=== PATIENT | female | born 1945 | race Caucasian/White ===

== ENCOUNTER 2017-08-31 13:09 | Inpatient (IN) ==
--- NOTE | 2017-08-31 15:59 | Pulmonology History & Physical ---
<JannedelmiraNuha pepper M - Last Filed: 08/31/17 16:17> Date of Encounter: 08/31/17 History of Present Illness HPI: Ms. Mckeon is a 71 year old female Medications and Allergies Albuterol Sulfate [Ventolin Hfa] 18 gm IH Q4HR PRN 11/05/16 [History] Citalopram Hydrobromide [Citalopram HBr] 40 mg PO DAILY 11/05/16 [History] Clopidogrel [Plavix] 75 mg PO DAILY 11/05/16 [History] Fluticasone/Salmeterol [Advair 250-50 Diskus] 1 each IH BID 11/05/16 [History] Insulin Glargine,Hum.rec.anlog [Lantus Solostar] 10 unit SQ DAILY 11/05/16 [ History] Omeprazole 20 mg PO DAILY 11/05/16 [History] Oxybutynin Chloride [Ditropan Xl] 15 mg PO DAILY 11/05/16 [History] Atorvastatin [Lipitor] 20 mg PO HS 08/31/17 [History] Ketotifen Fumarate [Zaditor] 1 - 2 drop OP DAILY 08/31/17 [History] Montelukast Sodium [Singulair] 10 mg PO DAILY 08/31/17 [History] 3 Allergy/AdvReac Type Severity Reaction Status Date / Time Penicillins Allergy Anaphylaxis Verified 08/31/17 17:12 All Systems: The remainder of the systems were reviewed and are negative Physical Examination Vital Signs: Vital Signs, Last 4 Hours Pulse Pulse Ox 08/31/17 15:55 80 08/31/17 15:36 99 - Attending Attestation I examined this patient and my medical decision-making was reviewed with the Resident Physician. I agree with the documented findings, disposition and treatment plan as described except to the extent set forth below. Patient seen and examined. Labs, radiology, chart personally reviewed. 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 Is not clear the patient has gastrointestinal bleed, however she is at risk and to continue monitoring. Patient needs to be on PPI and even octreotide. When stable enough will need to check CT abdomen pelvis since patient has history of falls history and a history from family and evaluate for retroperitoneal bleed. Heme: DVT prophylaxis per routine. Patient with severe anemia and I suspect this is from acute blood loss and patient has thrombocytopenia and she is on Plavix listed on her medication. Needs to transfuse blood and platelets. Check coagulopathy. She might need even hematology consultation for further workup. Peripheral smear be important to check. Mechanical DVT prophylaxis ID: Empiric antibiotics Renal; urine out put and renal funtion reviewed. May need nephrology evaluation Endorcine: blood glucose is monitored Lines: all lines checked and no evidence of infections Skin: skin care to prevent pressure ulcers per nursing routine care Discussed with family at the bedside. I spent 35 min of Critical Care time with this patient. It involved decision making of high complexity to assess, manipulate, and support vital organ system failure and/or to prevent further life threatening deterioration of the patient' s condition. The time involved in the performance of separately reportable procedures was not counted toward critical care time. <Omar Briceno - Last Filed: 08/31/17 17:55> Date of Encounter: 08/31/17 Time of Encounter: 15:59 Assessment and Plan (1) Pancytopenia Current visit: Yes Status: Acute Patient has had increased falls recently. On exam patient was completely alert and oriented. She did have generalized weakness. This again is probably all due to her pancytopenia this could be chronic. Or this could be an underlying upper GI bleed. Patient has had melanic stools and she is constipated where she has bowel movements every 4 days. Patient is also on Plavix but no other anticoagulation. She is on Plavix due to previous CVAs. There was bruising on exam but no current bleeding. Patient had a hemoglobin of 5.6 as well as platelets of 14 We will give 2 units of packed red blood cells upon arrival as well as 1 unit of platelets. Every 6 hour H&H's to continue to monitor. Consider adding more blood or platelets based on what hemoglobin comes back. (2) Hyponatremia Current visit: Yes Status: Acute Patient was hyponatremic of 118 but she was hyperglycemic at 500 when you do the sodium correction it is 125. This most likely is just due to dehydration and poor diabetes control. We will give patient 500 mL bolus of normal saline and also give her 75 mL per hour normal saline maintenance fluids. We will continue to monitor with daily CMP is (3) GI bleed Current visit: Yes Status: Acute Patient has had melenic stools and she also has been constipated. Her pancytopenia could also be due to her upper GI bleed that she is having. We will stabilize patient with blood and platelets and will consult GI for possible upper endoscopy. We will start Protonix and octreotide getting boluses and then following up with a drip. Qualifiers: GI bleed type/associated pathology: unspecified gastrointestinal hemorrhage type Qualified Code(s): K92.2 - Gastrointestinal hemorrhage, unspecified (4) Hyperglycemia Current visit: No Status: Acute (5) Type 2 diabetes mellitus Current visit: Yes Status: Acute Patient does have history diabetes she takes Lantus daily for many years. Patient for the last 2 weeks said that she does not like poking herself so she was not taking it. Patient is also no watching her diet. She did have elevated glucose of over 500. The did give 10 units of insulin at the outside facility before transferring. We will start low-dose insulin protocol and continue to monitor. We will give 500 IV bolus and also maintenance fluids at 75 per hour which should help with patient's hyperglycemia. 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 She does have good pedal pulses bilaterally she is neurovascularly intact in both legs and she does have movement at the hip. There is no tenderness when doing pelvic compression. We will get left hip x-ray and give Tylenol for pain control. (7) DVT prophylaxis Current visit: Yes Status: Acute Will hold anticoagulation for suspected GI bleed History of Present Illness Chief complaint: Weakness HPI: Ms. Mckeon is a 71 year old female with history of COPD smokes 2 packs per day presented to the emergency department in [place] for generalized weakness and frequent falls. Family states that over the past couple weeks they have found her she has felt 2-3 times a day found on the ground. States since then she has still been acting normal not complaining of any headaches or any generalized numbness or tingling or weakness on one side. They said that now she is so weak that she is unable to stand. Daughter said they found her on the floor and they helped her off up off and she is unable Vishnu or legs were giving out when she tried to walk. Patient 4 days ago did live by herself and her recently moved in with sister who has been taking care of them. Every time that they find that she falls it is when the daughter is outside of the house. Theybeen having trouble caring for both the patient as well as the who also has dementia. Theyshe has been drinking a lot less water than normal as well as eating less food. Patient does have very poor bowel habits as she says she has a bowel movement every 4 days Ciszek can be black but there is no gross blood in the toilet or when she wipes. So this is going on for partially one year she has not had a doctor's appointment for this. Patient does have history of bladder incontinence that usually occurs once an evening for last couple years. Patient states he only medical problem she has is a heart problem but she is unsure what type of heart problems she has never had an echocardiogram or had stents placed her in a heart attack or open heart surgery. She does not take any high blood pressure medications. Patient does have history of CVAs where she has had no left-sided weakness she does take Plavix for this. No other anticoagulation taken. Patient is diabetic she is only prescribed Lantus was says she has not taken it for last 2-3 weeks as she does not like to give it to herself. Past Med Surg Social Fam HX - Past Medical History Medical history: asthma, COPD, CVA, diabetes, hyperlipidemia Psychiatric history: no psych history - Past Surgical History Surgical History: thyroidectomy - Social History Smoking Status: Current every day smoker Smokeless Tobacco Status: No Alcohol use: none Drug use: none All Systems: The remainder of the systems were reviewed and are negative - Constitutional Constitutional: fatigue, no anorexia, no chills, no daytime sleepiness, no excessive sweating, no fever(s) - EENT Eyes: no loss of vision Ears: no decreased hearing Nose, mouth and throat: no dizziness, no dry mouth, no headache(s), no neck pain , no sinus pain, no sore throat - Cardiovascular Cardiovascular: no chest pain, no chest pain at rest, no chest pain with activity, no dyspnea, no edema, no irregular heart rhythm, no leg edema, no lightheadedness, no palpitations, no pedal edema - Respiratory Respiratory: no cough, no dyspnea, no hemoptysis, no wheezing, no stridor, no pain on inspirtation, no chest congestion, no pain with cough - Gastrointestinal Gastrointestinal: melena, no abdominal pain, no diarrhea, no nausea, no vomiting - Musculoskeletal Musculoskeletal: weakness, no joint pain, no arthralgias, no back pain, no muscle weakness, no numbness, no radiating pain into limb, no stiffness, no tingling - Integumentary Integumentary: no erythema, no rash, no jaundice - Neurological Neurological: no abnormal gait, no abnormal hearing, no confusion, no dizziness , no headache(s), no loss of vision, no numbness, no radicular pain, no syncope , no weakness - Psychiatric Psychiatric: no anxiety - Endocrine Endocrine: no cold intolerance, no deeping of the voice - Hematologic/Lymphatic Hematologic/Lymphatic: easy bruising, no lymphadenopathy - Allergic/Immunologic Allergic/Immunologic: no tongue swelling, no throat swelling, no seasonal rhinorrhea, no uticaria, no wheezing, no lip swelling Physical Examination Vital Signs: Vital Signs, Last 4 Hours Pulse Ox 08/31/17 15:36 99 General appearance: no acute distress, alert Eyes: nonicteric ENT: oropharynx moist Neck: supple Effort: normal Inspection: normal Auscultation: bilateral: clear Cardiovascular: regular rate and rhythm Gastrointestinal: normoactive bowel sounds, soft, non-tender, non-distended Integumentary: normal Extremities: no cyanosis, no edema, no clubbing Musculoskeletal: no deformities, ROM normal normal mental status, non-focal exam, pupils equal and round, motor strength normal and symmetric Results - Diagnostic Findings Chest x-ray: image reviewed
[2017-08-31] MEDS ORDERED: Acetaminophen 325 MG TABLET PO PRN (16:10)
[2017-08-31] MEDS ORDERED: Naloxone 0.4 MG/ML INJ IVP PRN (16:10)
[2017-08-31] MEDS ORDERED: 0.9 % Sodium Chloride 1,000 ML IVC SCH (16:15)
[2017-08-31] MEDS ORDERED: 0.9 % Sodium Chloride 500 ML IVC ONE (16:22)
[2017-08-31] MEDS ORDERED: Pantoprazole 40 MG VIAL IVP ONE (16:36)
[2017-08-31] MEDS ORDERED: Octreotide 50 MCG/ML SYRINGE IVP ONE (16:36)
[2017-08-31] MEDS ORDERED: D5% in Water 1,000 ML IVC PRN (17:24)
[2017-08-31] MEDS ORDERED: *HR* Dextrose 50 % in Water (Syg) 50 ML SYRINGE IVP PRN (17:24)
[2017-08-31] MEDS ORDERED: Dextrose Gel 15 GM/37.5 ML TUBE PO PRN ×2 (17:24)
[2017-08-31] MEDS ORDERED: Potassium Phosphate 44 MEQ in 0.9 % Sodium Chloride 250 ML IVPB PRN (17:26)
[2017-08-31 17:32] LABS: INR 1.7; Prothrombin Time 18.6 Seconds (9.4-12.1)
[2017-08-31 17:37] LABS: Hematocrit 15.3 % (35.3-44.9); Lymphocytes # 0.7 K/mcL (0.6-4.6); Mean Corpuscular HGB Conc 35.3 g/dL (31.6-35.5); Mean Corpuscular Hemoglobin 33.1 pg (28.0-33.3); Mean Corpuscular Volume 93.9 fL (83.0-100.0); Mean Platelet Volume 12.2 fL (9.4-12.4); Monocytes # 0.1 K/mcL (0.0-1.3); Monocytes % 3.5 %; Neutrophils # 2.3 K/mcL (1.6-8.9); Red Blood Count 1.63 M/mcL (3.82-4.97); Red Cell Distribution Width 17.2 % (11.5-14.5); Segmented Neutrophils % 73.5 %
[2017-08-31 17:45] LABS: Hemoglobin 5.4 g/dL (11.5-15.4)
[2017-08-31 17:46] LABS: Platelet Count 10 K/mcL (140-400)
[2017-08-31 17:57] LABS: Calcium 7.8 mg/dL (8.6-10.3); Potassium 4.9 mEq/L (3.5-5.1)
[2017-08-31] MEDS: Octreotide 400 MCG in 0.9 % Sodium Chloride 100 ML IVC SCH (18:02)
[2017-08-31 18:08] LABS: Platelet Estimate Marked Decrease (Normal)
[2017-08-31] MEDS: Pantoprazole 40 MG in 0.9 % Sodium Chloride Mini Bag 100 ML IVC SCH ×2 (18:09→21:37)
[2017-08-31] MEDS: Insulin LISPRO 300 UNITS/3 ML VIAL SQ SCH ×2 (18:10→23:36)
[2017-08-31] MEDS ORDERED: 0.9 % Sodium Chloride 500 ML ONE (19:42)
[2017-09-01 01:08] LABS: Hematocrit 21.1 % (35.3-44.9)
[2017-09-01 01:14] LABS: Hemoglobin 7.3 g/dL (11.5-15.4)
[2017-09-01] MEDS: Octreotide 400 MCG in 0.9 % Sodium Chloride 100 ML IVC SCH ×2 (01:20→04:15)
[2017-09-01] MEDS: Pantoprazole 40 MG in 0.9 % Sodium Chloride Mini Bag 100 ML IVC SCH ×2 (03:18→09:25)
[2017-09-01 06:13] LABS: Hemoglobin 7.5 g/dL (11.5-15.4)
[2017-09-01 06:15] LABS: Basophils % 0.3 %; Hematocrit 20.8 % (35.3-44.9); Immature Granulocytes % 0.3 % (0-4); Immature Platelets 1.8 % (1.1-6.1); Lymphocytes # 0.8 K/mcL (0.6-4.6); Mean Corpuscular HGB Conc 36.1 g/dL (31.6-35.5); Mean Corpuscular Hemoglobin 31.4 pg (28.0-33.3); Mean Platelet Volume 9.5 fL (9.4-12.4); Monocytes # 0.1 K/mcL (0.0-1.3); Monocytes % 3.9 %; Neutrophils # 2.1 K/mcL (1.6-8.9); Red Blood Count 2.39 M/mcL (3.82-4.97); Red Cell Distribution Width 18.6 % (11.5-14.5); Segmented Neutrophils % 68.5 %
[2017-09-01 06:18] LABS: VBG Ionized Calcium 1.03 mmol/L (1.15-1.35)
[2017-09-01 06:25] LABS: Platelet Count 72 K/mcL (140-400)
[2017-09-01] MEDS: Insulin LISPRO 300 UNITS/3 ML VIAL SQ SCH ×3 (06:27→21:32)
[2017-09-01 06:31] LABS: Calcium 7.7 mg/dL (8.6-10.3); Magnesium 1.9 mg/dL (1.6-2.6); Phosphorous 4.9 mg/dL (2.7-4.5); Potassium 4.6 mEq/L (3.5-5.1)
[2017-09-01 06:54] LABS: Anisocytosis 1+ (Not Present); Burr Cells 1+ (Not Present); Ovalocytes 1+ (Not Present); Platelet Estimate Decreased (Normal)
--- NOTE | 2017-09-01 07:40 | Pulmonology Progress Note ---
<Ronaldo Bell - Last Filed: 09/01/17 08:50> Date of Encounter: 09/01/17 Time of Encounter: 08:12 Assessment and Plan (1) Anemia Current Visit: Yes Status: Acute Patient's hemoglobin was 5.6 and outside hospital repeat upon transfer was 5.4. Patient was symptomatically with shortness of breath and weakness over a week' s timeframe. Patient does have a history of cancerous polyps in the past. Patient denied any blood in the stool or dark tarry stools. No signs of hemoptysis or hematemesis. Patient was transfused 2 units of PRBCs. Patient's symptoms improved overnight. Patient's anemia is likely chronic in nature. Suspect GI bleed. Patient also has acute kidney injury as well as thrombocytpenia, HUS also in differential. PLAN -Serial H/H -Protonix and octreotide -LDH 788 -Peripheral smear pending. -GI consult -CT abd/pelvis pending Qualifiers: Anemia type: unspecified type Qualified Code(s): D64.9 - Anemia, unspecified (2) Thrombocytopenia Current Visit: Yes Status: Acute Platelets were less than 10. Patient received 1 unit of packed cells and platelets. On repeat evaluation. The patient's platelets have improved. Plan -Continue to monitor -Transfuse <10 -Watch for signs/symptoms of bleeding (3) Acute kidney injury Current Visit: Yes Status: Acute Patient has had limited values in the past to compare. Patient likely has an element of prerenal kidney disease. Patient is getting IV fluids. Patient's creatinine slightly improved from prior evaluations however the patient continues to have a GFR consistent with chronic kidney disease stage III. Patient is continuing produce urine. PLAN -I/Os -Continue to monitor BMP -Avoid neprhotoxins (4) COPD (chronic obstructive pulmonary disease) Current Visit: Yes Status: Acute Patient does have a history of COPD. Aerosols were from home. Patient does not appear to be in acute exacerbation. Patient denies any significant cough. Patient's dyspneic complaint is likely related to her anemia. Patient did get a chest x-ray [facility] which showed COPD and mild bilateral effusions with mild increased interstitial changes suggesting atypical pneumonia versus pulmonary edema. Given the patient does not have a significant cough with no fevers. Antibiotics were not given at this time. PLAN -Titrate Oxygen to 92-97% -Home nebs -If the patient develops a significant cough, fever, increase dyspnea may consider antibiotics and steroids. Qualifiers: COPD type: unspecified COPD Qualified Code(s): J44.9 - Chronic obstructive pulmonary disease, unspecified (5) GI bleed Current Visit: Yes Status: Acute Presumed GI bleed given the history. Patient hemoglobin and platelets have improved following transfusion. Patient's on Protonix as well as octreotide. Patient did have a history of colonoscopy 6 years ago which revealed a cancerous polyp that was removed. Patient also states that she had a repeat colonoscopy a couple years ago which showed no acute findings. Patient is denying any blood in the stool or dark tarry stools. PLAN -As above -Appreciate GI recommendations. Qualifiers: GI bleed type/associated pathology: unspecified gastrointestinal hemorrhage type Qualified Code(s): K92.2 - Gastrointestinal hemorrhage, unspecified (6) Hyponatremia Current Visit: Yes Status: Acute Sodium 122. Likely hypovolemic hyponatremia. Improving with 0.9% to 128. Patient is currently on 0.9% normal saline. No mental status changes. PLAN -Continue to monitor. -Daily BMP Subjective Principal diagnosis: Pancytopenia Interval history: Patient seen and examined. Patient's resting comfortably this morning. Patient denies any specific complaints. Patient does confirm the history provided. States that she has been feeling weak and short of breath approximately week. Patient was seen in the [facility] emergency department where she was found to be anemic with hemoglobin of 5.6 for patient was also found to be thrombocytopenic. Patient is on Plavix for CVA in the past. Patient was not hemodynamically unstable. Patient required 2 units of PRBCs as well as 1 packs of platelets. Patient was started on Protonix as well as octreotide. Patient denied any blood in the stool or dark tarry stools. Patient denies any episodes of hemoptysis or hematemesis. Patient states that she has had a colonoscopy 6 years ago which showed a cancerous polyp that was removed. Patient had a repeat colonoscopy 2 years ago which she reports is unremarkable. Objective PUL Vital signs: Last Vital Signs Temp 97.8 F 09/01/17 06:00 Pulse 75 09/01/17 06:00 Resp 16 09/01/17 06:00 BP 112/77 09/01/17 06:00 Pulse Ox 95 09/01/17 06:00 General appearance: no acute distress Eyes: nonicteric ENT: oropharynx moist Neck: supple Effort: normal Auscultation: bilateral: clear (slightly dimished throughout) Cardiovascular: regular rate and rhythm Gastrointestinal: normoactive bowel sounds Integumentary: normal Extremities: no cyanosis Musculoskeletal: no deformities normal mental status, non-focal exam, pupils equal and round, CN II-XII normal Results - Laboratory Findings CBC and BMP: 09/01/17 06:00 09/01/17 06:00 PT/INR, D-dimer PT 18.6 Seconds (9.4-12.1) H 08/31/17 16:46 Abnormal lab findings: Abnormal lab results WBC 3.0 K/mcL (4.3-11.1) L 09/01/17 06:00 RBC 2.39 M/mcL (3.82-4.97) L 09/01/17 06:00 Hgb 7.5 g/dL (11.5-15.4) L 09/01/17 06:00 Hct 20.8 % (35.3-44.9) L 09/01/17 06:00 MCHC 36.1 g/dL (31.6-35.5) H 09/01/17 06:00 RDW 18.6 % (11.5-14.5) H 09/01/17 06:00 Plt Count 72 K/mcL (140-400) L D 09/01/17 06:00 Nucleated RBCs/100 WBC 1.0 /100 WBC (0) H 09/01/17 06:00 Platelet Estimate Decreased (Normal) L 09/01/17 06:00 Anisocytosis 1+ (Not Present) A 09/01/17 06:00 Ovalocytes 1+ (Not Present) A 09/01/17 06:00 Rosamond Cells 1+ (Not Present) A 09/01/17 06:00 PT 18.6 Seconds (9.4-12.1) H 08/31/17 16:46 APTT 25.0 Seconds (26.0-36.0) L 08/31/17 16:46 Sodium 128 mEq/L (136-145) L 09/01/17 06:00 Carbon Dioxide 22 mEq/L (23-29) L 09/01/17 06:00 BUN 54 mg/dL (8-23) H 09/01/17 06:00 Est GFR ( Amer) 54 (> 60) L 09/01/17 06:00 Est GFR (Non-Af Amer) 44 (> 60) L 09/01/17 06:00 BUN/Creatinine Ratio 45 (6-26) H 09/01/17 06:00 Glucose 144 mg/dL (70-105) H 09/01/17 06:00 POC Glucose 159 mg/dL (70-99) H 09/01/17 06:27 Calcium 7.7 mg/dL (8.6-10.3) L 09/01/17 06:00 Venous Ioniz Calcium 1.03 mmol/L (1.15-1.35) L 09/01/17 06:13 Phosphorus 4.9 mg/dL (2.7-4.5) H 09/01/17 06:00 Lactate Dehydrogenase 788 Units/L (140-271) H 08/31/17 17:29 - Diagnostic Findings Chest x-ray: report reviewed, image reviewed - Clinical Findings Intake & Output: Intake & Output 08/31/17 08/31/17 09/01/17 15:59 23:59 07:59 Intake Total 1150 / 1150 654 / 654 Output Total 25 / 25 300 / 300 200 / 200 Balance -25 / -25 850 / 850 454 / 454 Weight 60 kg Consult Discharge Plan - Plan Referrals: Siomara Chavez, ASSOCIATE MARKETING MANAGER [Primary Care Provider] - <Nuha Amor - Last Filed: 09/01/17 13:04> Date of Encounter: 09/01/17 Objective PUL Vital signs: Last Vital Signs Temp 97.8 F 09/01/17 12:52 Pulse 75 09/01/17 12:57 Resp 18 09/01/17 12:57 BP 125/55 09/01/17 12:57 Pulse Ox 100 09/01/17 12:57 Results - Laboratory Findings CBC and BMP: 09/01/17 06:00 09/01/17 06:00 PT/INR, D-dimer PT 18.6 Seconds (9.4-12.1) H 08/31/17 16:46 Abnormal lab findings: Abnormal lab results WBC 3.0 K/mcL (4.3-11.1) L 09/01/17 06:00 RBC 2.39 M/mcL (3.82-4.97) L 09/01/17 06:00 Hgb 7.5 g/dL (11.5-15.4) L 09/01/17 06:00 Hct 20.8 % (35.3-44.9) L 09/01/17 06:00 MCHC 36.1 g/dL (31.6-35.5) H 09/01/17 06:00 RDW 18.6 % (11.5-14.5) H 09/01/17 06:00 Plt Count 72 K/mcL (140-400) L D 09/01/17 06:00 Nucleated RBCs/100 WBC 1.0 /100 WBC (0) H 09/01/17 06:00 Platelet Estimate Decreased (Normal) L 09/01/17 06:00 Anisocytosis 1+ (Not Present) A 09/01/17 06:00 Ovalocytes 1+ (Not Present) A 09/01/17 06:00 Inocencio Cells 1+ (Not Present) A 09/01/17 06:00 PT 18.6 Seconds (9.4-12.1) H 08/31/17 16:46 APTT 25.0 Seconds (26.0-36.0) L 08/31/17 16:46 Sodium 128 mEq/L (136-145) L 09/01/17 06:00 Carbon Dioxide 22 mEq/L (23-29) L 09/01/17 06:00 BUN 54 mg/dL (8-23) H 09/01/17 06:00 Est GFR ( Amer) 54 (> 60) L 09/01/17 06:00 Est GFR (Non-Af Amer) 44 (> 60) L 09/01/17 06:00 BUN/Creatinine Ratio 45 (6-26) H 09/01/17 06:00 Glucose 144 mg/dL (70-105) H 09/01/17 06:00 POC Glucose 159 mg/dL (70-99) H 09/01/17 06:27 Calcium 7.7 mg/dL (8.6-10.3) L 09/01/17 06:00 Venous Ioniz Calcium 1.03 mmol/L (1.15-1.35) L 09/01/17 06:13 Phosphorus 4.9 mg/dL (2.7-4.5) H 09/01/17 06:00 Lactate Dehydrogenase 788 Units/L (140-271) H 08/31/17 17:29 - Clinical Findings Intake & Output: Intake & Output 08/31/17 09/01/17 09/01/17 23:59 07:59 15:59 Intake Total 1150 / 1150 654 / 654 100 / 100 Output Total 300 / 300 450 / 450 200 / 200 Balance 850 / 850 204 / 204 -100 / -100 Weight 59.3 kg - Attending Attestation I examined this patient and my medical decision-making was reviewed with the Resident Physician. I agree with the documented findings, disposition and treatment plan as described except to the extent set forth below. Patient seen and examined. Labs, radiology, chart personally reviewed. Agree with resident's history and physical, assessment, plan with following comments: ASSISTANT STORE MANAGER SALES: Patient follows commands, Pulmonary: Acceptable oxygenation and ventilation Cardiovascular: stable and can be transferred to the floor and cardiology may need to see patient regarding antiplatelets. GI: Nutrition per dietary and GI prophylaxis per routine. Patient to be evaluated by gastroenterology Heme: DVT prophylaxis per routine. Monitor H&H and platelets are acceptable. May need hematology Renal; urine out put and renal funtion reviewed Endorcine: blood glucose is monitored Lines: all lines checked and no evidence of infections Skin: skin care to prevent pressure ulcers per nursing routine care
[2017-09-01] MEDS ORDERED: Isovue-370 500 ML INFUS..BTL IV ONE ×2 (08:02→10:00)
[2017-09-01] MEDS ORDERED: Naloxone 0.4 MG/ML INJ IVP PRN (10:00)
[2017-09-01] MEDS ORDERED: Dextrose Gel 15 GM/37.5 ML TUBE PO PRN ×2 (10:00)
[2017-09-01] MEDS ORDERED: Pantoprazole 40 MG in 0.9 % Sodium Chloride Mini Bag 100 ML IVC SCH (10:00)
[2017-09-01] MEDS ORDERED: D5% in Water 1,000 ML IVC PRN (10:00)
[2017-09-01] MEDS ORDERED: *HR* Dextrose 50 % in Water (Syg) 50 ML SYRINGE IVP PRN (10:00)
[2017-09-01] MEDS ORDERED: Octreotide 400 MCG in 0.9 % Sodium Chloride 100 ML IVC SCH (10:00)
[2017-09-01] MEDS: Budesonide/Formoterol 80/4.5 MDI IH SCH ×2 (11:00→20:10)
--- NOTE | 2017-09-01 11:38 | Gastroenterology Consult Note ---
<BarreraBogdan driscoll William - Last Filed: 09/01/17 11:48> Date of Encounter: 09/01/17 Time of Encounter: 10:10 - Assessment and plan (1) GI bleed Current Visit: Yes Status: Acute Assessment and plan: Plan for EGD today to r/o esophagitis, gastritis, duodenitis, PUD, MW tear, or AVM. Keep NPO. Qualifiers: GI bleed type/associated pathology: unspecified gastrointestinal hemorrhage type Qualified Code(s): K92.2 - Gastrointestinal hemorrhage, unspecified (2) Anemia Current Visit: Yes Status: Acute Assessment and plan: Liekly secondary to GI bleeding. Hgb 5.4 on admission and 7.3 after 2 units PRBC. Continue to monitor CBC and transfuse PRBC as needed. Qualifiers: Anemia type: unspecified type Qualified Code(s): D64.9 - Anemia, unspecified (3) Thrombocytopenia Current Visit: Yes Status: Acute Assessment and plan: Platelets 10 on admission and 72 after receiving 2 units of platelets. Continue to monitor. - Time Spent With Patient Total time spent is greater than 50% in coordination of care (as documented) at patient's floor/unit and/or counseling patient: GI History of Present Illness - Data of Consult Patient: new to practice Consult date: 09/01/17 Requesting Physician: Nuha Amor MD - Consult Narrative Reason for consult: UGI Bleed History of present illness: Ms. Mckeon is a 71 year old female with PMHx of asthma, COPD, CVA, diabetes, hyperlipidemia who presented to the ED with generalized weakness and frequent falls. Patient does have very poor bowel habits as she says she has a bowel movement every 4 days which can be black but there is no gross blood in the toilet or when she wipes. Patient was pancytopenic on admission with WBC 3.1, Hgb 5.4, and Plts 10. She has received 2 units PRBC and 2 units Plts. Today WBC 3, Hgb 7.3, and Plts 72. We were consulted to evaluate possible upper GI bleed. Procedures: Patient reports colonoscopy 6 years ago which revealed a cancerous polyp that was removed. Patient also reports a repeat colonoscopy a couple years ago which showed no acute findings. NSAIDs: None Anticoagulation: Plavix Past Med Surg Social Fam HX - Past Medical History Medical history: asthma, COPD, CVA, diabetes, hyperlipidemia Psychiatric history: no psych history - Past Surgical History Surgical History: thyroidectomy - Social History Smoking Status: Current every day smoker Smokeless Tobacco Status: No Alcohol use: none Drug use: none - Gastrointestinal Gastrointestinal: Present: as per HPI - Constitutional Constitutional: as per HPI - EENT Eyes: as per HPI Ears: Present: as per HPI Nose, mouth and throat: Present: as per HPI - Cardiovascular Cardiovascular ROS: Present: as per HPI - Respiratory Respiratory IM: Present: as per HPI - Genitourinary Genitourinary: Absent: change in color, Urinary frequency - Neurological ROS Neurological GI: Present: as per HPI - Hematologic/Lymphatic Hematologic/Lymphatic pediatric: Present: as per HPI - Musculoskeletal Musculoskeletal ROS GI: Present: as per HPI - Integumentary Integumentary GI: Present: as per HPI - Psychiatric ROS Psychiatric GI: Present: as per HPI - Endocrine Endocrine IM: Present: as per HPI - Constitutional Vitals: Temp Pulse Resp BP Pulse Ox 98.0 F 73 16 119/50 90 09/01/17 10:59 09/01/17 10:59 09/01/17 11:00 09/01/17 10:59 09/01/17 11:00 General appearance: Present: cooperative, A&O X 3, no acute distress, answers questions appropriately - Head Head exam: Present: atraumatic, normocephalic - Eye Eye exam: Present: normal appearance, sclera anicteric - ENT ENT exam: Present: mucous membranes dry - Neck Neck exam general surgery: Present: normal inspection, trachea midline - Respiratory Respiratory exam: Present: decreased breath sounds, CTAB - Cardiovascular Cardiovascular exam: Present: RRR, +S1, +S2 - GI/Abdominal GI/Abdominal exam: Present: soft, no peritoneal signs. Absent: distended, firm , guarding, tenderness - Rectal Rectal exam: Present: deferred - Extremities Exam Extremities exam: Present: warm - Neurological Exam Neurological exam: Present: no focal deficits - Psychiatric Psychiatric exam: Present: normal affect, normal mood - Skin Skin exam: Present: dry, intact, normal color, warm Results - Labs CBC & Chem 7: 09/01/17 06:00 09/01/17 06:00 Labs: Last Result Calcium 7.7 mg/dL (8.6-10.3) L 09/01/17 06:00 Entire Visit Hgb 7.5 g/dL (11.5-15.4) L 09/01/17 06:00 Hct 20.8 % (35.3-44.9) L 09/01/17 06:00 PT 18.6 Seconds (9.4-12.1) H 08/31/17 16:46 - ABG ABG results: PT/INR, D-dimer PT 18.6 Seconds (9.4-12.1) H 08/31/17 16:46 - Impressions Impressions Hip X-Ray 08/31/17 17:55 IMPRESSION: No acute osseous abnormality. D/ / 09/01/2017 06:57:32 Jon Lord MD / [email or web address] Interpreting Provider: Jon Lord MD Abdomen/Pelvis CT 09/01/17 08:08 IMPRESSION: Bilateral pleural effusions, with mild abdominopelvic ascites and body wall anasarca suggesting fluid overload. Patchy opacity at the lung bases, either atelectasis or pneumonia. There is underlying emphysema Nonobstructing renal calculi. Mild stool load in the colon with scattered colonic diverticula seen D/ / Bernard Gu MD / Bernard Gu MD Interpreting Provider: Bernard Gu MD Consult Discharge Plan - Plan Referrals: Siomara Chavez, SURVEYING TEACHER [Primary Care Provider] - <Valencia Glover - Last Filed: 09/01/17 12:44> Date of Encounter: 09/01/17 Time of Encounter: 12:30 - Time Spent With Patient Total time spent is greater than 50% in coordination of care (as documented) at patient's floor/unit and/or counseling patient: GI History of Present Illness - Data of Consult Requesting Physician: Nuha Amor MD - Consult Narrative History of present illness: Ms. Mckeon is a 71 year old female - Constitutional Vitals: Temp Pulse Resp BP Pulse Ox 98.0 F 73 16 119/50 90 09/01/17 10:59 09/01/17 10:59 09/01/17 11:00 09/01/17 10:59 09/01/17 11:00 Results - Labs CBC & Chem 7: 09/01/17 06:00 09/01/17 06:00 Labs: Last Result Calcium 7.7 mg/dL (8.6-10.3) L 09/01/17 06:00 Entire Visit Hgb 7.5 g/dL (11.5-15.4) L 09/01/17 06:00 Hct 20.8 % (35.3-44.9) L 09/01/17 06:00 PT 18.6 Seconds (9.4-12.1) H 08/31/17 16:46 - ABG ABG results: PT/INR, D-dimer PT 18.6 Seconds (9.4-12.1) H 08/31/17 16:46 - Impressions Impressions Hip X-Ray 08/31/17 17:55 IMPRESSION: No acute osseous abnormality. D/ / 09/01/2017 06:57:32 Jon Lord MD / [facility] Interpreting Provider: Jon Lord MD Abdomen/Pelvis CT 09/01/17 08:08 IMPRESSION: Bilateral pleural effusions, with mild abdominopelvic ascites and body wall anasarca suggesting fluid overload. Patchy opacity at the lung bases, either atelectasis or pneumonia. There is underlying emphysema Nonobstructing renal calculi. Mild stool load in the colon with scattered colonic diverticula seen D/ / Bernard Gu MD / Bernard Gu MD Interpreting Provider: Bernard Gu MD - Attending Attestation I have personally performed a face to face evaluation on this patient. I have reviewed and agree with the care plan. History and Exam by me shows: Patient seen patient with thrombocytopenia and pancytopenia with severe anemia. Number are improving , denies any recent use of any antibiotics. CT abdomen was unremarkable. Did had melena on admission. Recommendation: EGD today.
[2017-09-01] MEDS ORDERED: Insulin LISPRO 300 UNITS/3 ML VIAL SQ SCH (12:00)
[2017-09-01] MEDS ORDERED: *HR* Midazolam HCl 5 MG/5 ML VIAL IVP ONE (12:35)
[2017-09-01] MEDS ORDERED: *HR* FentaNYL (PF) 100 MCG/2 ML VIAL ONE (12:36)
[2017-09-01] MEDS ORDERED: Tetracaine/Benzocaine/Butamben 200MG/SPRAY (100SPY/BOT) ONE (12:38)
[2017-09-01] MEDS ORDERED: *HR* Midazolam HCl 2 MG/2 ML VIAL IVP ONE (12:53)
[2017-09-01] MEDS ORDERED: *HR* FentaNYL (PF) 100 MCG/2 ML VIAL IVP ONE (12:53)
[2017-09-01] MEDS ORDERED: Tetracaine/Benzocaine/Butamben 200MG/SPRAY (100SPY/BOT) MM ONE (12:53)
[2017-09-01] MEDS ORDERED: Simethicone 40 MG/0.6 ML MLS IR ONE (12:53)
--- NOTE | 2017-09-01 12:54 | Pre-Sedation Evaluation ---
Pre-sedation evaluation - Pre-sedation checklist Date of procedure: 09/01/17 Procedure: EGD Recent Vitals: Last Vital Signs Temp 98.0 F 09/01/17 10:59 Pulse 73 09/01/17 10:59 Resp 16 09/01/17 11:00 BP 119/50 09/01/17 10:59 Pulse Ox 90 09/01/17 11:00 H&P (including ROS) documented in medical record: Yes Previous reaction to sedatives/anesthetics: No Dietary Status: NPO after Midnight Dentition: No loose teeth or bridges ASA Classification *see protocol: CLASS III-Severe systemic disease Plan of Care: Pt appropriate candidate for procedure/moderate/conscious sedation , Risks/benefits of procedure/sedation discussed w/ patient/family
[2017-09-01 12:55] LABS: Hematocrit 23.6 % (35.3-44.9); Hemoglobin 8.6 g/dL (11.5-15.4)
[2017-09-01] MEDS: 0.9 % Sodium Chloride 1,000 ML IVC SCH (15:10)
[2017-09-01 18:19] LABS: Hematocrit 25.1 % (35.3-44.9); Hemoglobin 8.8 g/dL (11.5-15.4)
[2017-09-02 00:27] LABS: Hemoglobin 8.4 g/dL (11.5-15.4)
[2017-09-02 05:46] LABS: Basophils % 0.6 %; Eosinophils % 0.9 %; Hematocrit 22.6 % (35.3-44.9); Hemoglobin 7.9 g/dL (11.5-15.4); Immature Granulocytes % 1.2 % (0-4); Lymphocytes # 1.2 K/mcL (0.6-4.6); Lymphocytes % 38.3 %; Mean Corpuscular Hemoglobin 31.2 pg (28.0-33.3); Mean Corpuscular Volume 89.3 fL (83.0-100.0); Mean Platelet Volume 9.7 fL (9.4-12.4); Monocytes # 0.1 K/mcL (0.0-1.3); Monocytes % 3.4 %; Neutrophils # 1.8 K/mcL (1.6-8.9); Nucleated Red Blood Cells 0.6 /100 WBC (0); Red Blood Count 2.53 M/mcL (3.82-4.97); Red Cell Distribution Width 19.4 % (11.5-14.5); Segmented Neutrophils % 55.6 %
[2017-09-02 05:47] LABS: Platelet Count 41 K/mcL (140-400)
[2017-09-02 06:06] LABS: Platelet Estimate Decreased (Normal)
[2017-09-02 06:07] LABS: BUN/Creatinine Ratio 52 (6-26); Blood Urea Nitrogen 55 mg/dL (8-23); Calcium 7.6 mg/dL (8.6-10.3); Carbon Dioxide 22 mEq/L (23-29); Chloride 100 mEq/L (98-107); Glucose 93 mg/dL (70-105); Osmolality,Calculated 283 (280-300); Potassium 4.4 mEq/L (3.5-5.1); Sodium 129 mEq/L (136-145); eGFR For African Americans > 60 (> 60); eGFR For Non-African Americans 51 (> 60)
[2017-09-02] MEDS: Insulin LISPRO 300 UNITS/3 ML VIAL SQ SCH ×4 (07:45→20:44)
[2017-09-02] MEDS: Budesonide/Formoterol 80/4.5 MDI IH SCH ×2 (09:50→19:59)
[2017-09-02 10:00] LABS: Troponin I 0.04 ng/mL (< 0.04)
[2017-09-02] MEDS ORDERED: 0.9 % Sodium Chloride 1,000 ML ONE (12:26)
[2017-09-02] MEDS: 0.9 % Sodium Chloride 1,000 ML IVC SCH (12:31)
[2017-09-02 12:45] LABS: Hematocrit 22.9 % (35.3-44.9); Hemoglobin 8.2 g/dL (11.5-15.4)
--- NOTE | 2017-09-02 15:38 | Internal Med Progress Note ---
Date of Encounter: 09/02/17 Time of Encounter: 10:45 - Assessment and plan (1) Acute kidney injury Current Visit: Yes Status: Acute Assessment and plan: Sr Cr WNL 1.05, GFR improved at 52. Continue to monitor labs, continue IVF, avoid nephrotoxins. Likely due to dehydration and poor oral intake. (2) Anemia Current Visit: Yes Status: Acute Assessment and plan: Patient transferred from ICU today. Patient had EGD yesterday esophagus was normal, localized mild inflammation and erythema found in the gastric fundus. A single 11 mm sessile polyp with no stigmata of recent bleeding was found in the prepyloric region of the stomach. It was not removed due to the low platelets and high INR. Examined duodenum was normal. Recommend EGD in 1 year to check polyp. Iron, percent sat, ferritin all high. B12 high, and folate is within normal limits. Patient denies any dark or tarry stools, no melanic stools. Trending hemoglobin every 3 hours. Hemoglobin remaining basically stable. Last hemoglobin is 8.2 at 12:30. Continue to monitor vital signs, gentle IV fluid hydration, monitor for signs of bleeding, monitor labs. Qualifiers: Anemia type: unspecified type Qualified Code(s): D64.9 - Anemia, unspecified (3) COPD (chronic obstructive pulmonary disease) Current Visit: Yes Status: Acute Assessment and plan: No acute exacerbation. Lungs are clear and diminished throughout. Patient is on room air today. Continue albuterol, Symbicort. Continue er physician vital signs including pulse ox. Qualifiers: COPD type: unspecified COPD Qualified Code(s): J44.9 - Chronic obstructive pulmonary disease, unspecified (4) Falls frequently Current Visit: Yes Status: Acute Assessment and plan: Patient reports increased frequency of falling at home due to weakness and fatigue. Monitor for safety Up with assistance Fall precautions PT/OT consulted. (5) GI bleed Current Visit: Yes Status: Acute Assessment and plan: eGD completed 09/01. Patient has received 2 units of packed red blood cells as well as 2 units of platelets. EGD showed no acute bleeding. Trending hemoglobins, will transfuse if less than 7. Patient denies melanic stools. Denies dark tarry stools. Patient reports having negative guaiac, however those results are not available at this time. Stool occult blood has been ordered. Continue to monitor for overt signs of bleeding. Trend labs and continue gentle IV fluid hydration. Qualifiers: GI bleed type/associated pathology: unspecified gastrointestinal hemorrhage type Qualified Code(s): K92.2 - Gastrointestinal hemorrhage, unspecified (6) Hyponatremia Current Visit: Yes Status: Acute Assessment and plan: Improving. 129 today. Continue gentle fluid hydration. (7) Thrombocytopenia Current Visit: Yes Status: Acute Assessment and plan: Patient has received 2 units of platelets, platelets were 72 yesterday. 41 today. We will continue to monitor thrombocytopenia closely. Transfuse as needed. Continue to monitor for signs of bleeding (8) Type 2 diabetes mellitus Current Visit: Yes Status: Acute Assessment and plan: Hold home medications. Sliding scale insulin, diabetic diet, Accu-Cheks before meals and at bedtime. We will order A1c from morning. Qualifiers: Diabetes mellitus long-term insulin use: with long-term use Diabetes mellitus complication status: without complication Qualified Code(s): E11.9 - Type 2 diabetes mellitus without complications; Z79.4 - longterm (current) use of insulin (9) DVT prophylaxis Current Visit: Yes Status: Acute Assessment and plan: SCDs. No pharmacologic intervention due to anemia and blood loss. (10) Elevated troponin Current Visit: Yes Status: Acute Assessment and plan: Patient with mildly elevated troponin 0.04 today. She denies any chest pain. We will trend 3. Likely elevated in the setting of anemia and acute kidney injury. EKG pending consider cardiology consult based on troponins Continue telemetry - Time Spent With Patient Total time spent is greater than 50% in coordination of care (as documented) at patient's floor/unit and/or counseling patient: less than 15 minutes - Subjective Interval history: Pt was seen and assessed at bedside at 10 AM. She is alert, awake, oriented 3. She denies any abdominal pain. She denies any dark tarry or melanic stools. Patient reports history of prior anemia years ago but does not remember the cause or treatment. Patient reports multiple falls recently home due to fatigue and weakness. She denies headache or blurred vision, no neck pain or dizziness. She denies chest pain or shortness of breath. No abdominal pain, nausea, vomiting, or diarrhea. His aware that she will be here for several more days, she denies questions or concerns and verbalizes agreement with treatment plan. - Constitutional Vitals: Temp Pulse Resp BP Pulse Ox 98.1 F 76 16 102/62 91 09/02/17 11:34 09/02/17 11:34 09/02/17 11:34 09/02/17 11:34 09/02/17 11:34 General appearance: Present: cooperative, pleasant, no acute distress, answers questions appropriately - Head Head exam: Present: atraumatic, normal inspection, normocephalic - Eye Eye exam: Present: normal appearance, conjuntiva pink, sclera anicteric - Neck Neck exam general surgery: Present: supple, trachea midline. Absent: lymphadenopathy - Respiratory Respiratory exam: Present: CTAB. Absent: accessory muscle use, rales, rhonchi, wheezes - Cardiovascular Cardiovascular exam: Present: RRR, +S1, +S2. Absent: diastolic murmur, gallop, rubs, systolic murmur - GI/Abdominal GI/Abdominal exam: Present: normal bowel sounds, soft. Absent: distended, hepatomegaly, tenderness - Extremities Exam Extremities exam: Present: normal capillary refill, normal inspection, warm, radial pulses palpable and symmetrical. Absent: calf tenderness, cyanotic, pedal edema, tenderness - Neurological Exam Neurological exam: Present: alert, oriented X3, no focal deficits. Absent: facial droop, speech deficit - Skin Skin exam: Present: dry, intact, normal color, warm. Absent: rash Internal Medicine: Result - Labs CBC & Chem 7: 09/02/17 12:31 09/02/17 05:31 Labs: Short CBC 09/01/17 09/01/17 09/02/17 Range/Units 18:03 23:53 05:31 WBC 3.2 L (4.3-11.1) K/mcL Hgb 8.8 L 8.4 L 7.9 L (11.5-15.4) g/dL Hct 25.1 L 24.0 L 22.6 L (35.3-44.9) % Plt Count 41 L (140-400) K/mcL Neutrophils # 1.8 (1.6-8.9) K/mcL 09/02/17 Range/Units 12:31 WBC (4.3-11.1) K/mcL Hgb 8.2 L (11.5-15.4) g/dL Hct 22.9 L (35.3-44.9) % Plt Count (140-400) K/mcL Neutrophils # (1.6-8.9) K/mcL BMP 09/02/17 05:31 Sodium 129 L Potassium 4.4 Chloride 100 Carbon Dioxide 22 L BUN 55 H Creatinine 1.05 Glucose 93 Calcium 7.6 L Cardiac Enzymes 09/02/17 Range/Units 09:18 Troponin I 0.04 H* (< 0.04) ng/mL - ABG Interpretation ABG results: PT/INR, D-dimer PT 18.6 Seconds (9.4-12.1) H 08/31/17 16:46 Consult Discharge Plan - Plan Referrals: Siomara Chavez, COMPOSING MACHINE OPERATOR [Primary Care Provider] -
[2017-09-02 17:46] LABS: Hematocrit 22.5 % (35.3-44.9)
[2017-09-02 23:35] LABS: Hematocrit 23.9 % (35.3-44.9)
[2017-09-03] MEDS: Acetaminophen 325 MG TABLET PO PRN (02:30)
[2017-09-03 06:30] LABS: BUN/Creatinine Ratio 56 (6-26); Blood Urea Nitrogen 46 mg/dL (8-23); Calcium 7.3 mg/dL (8.6-10.3); Carbon Dioxide 18 mEq/L (23-29); Chloride 102 mEq/L (98-107); Glucose 119 mg/dL (70-105); Osmolality,Calculated 279 (280-300); Potassium 4.1 mEq/L (3.5-5.1); Sodium 128 mEq/L (136-145); eGFR For African Americans > 60 (> 60); eGFR For Non-African Americans > 60 (> 60)
[2017-09-03] MEDS: Budesonide/Formoterol 80/4.5 MDI IH SCH ×2 (07:29→19:38)
[2017-09-03] MEDS ORDERED: Calcium Gluconate 2,000 MG in 0.9 % Sodium Chloride 100 ML IVPB ONE (07:48)
[2017-09-03 08:18] LABS: Basophils % 1.5 %; Eosinophils % 1.1 %; Hematocrit 23.4 % (35.3-44.9); Hemoglobin 7.9 g/dL (11.5-15.4); Immature Granulocytes % 1.1 % (0-4); Immature Platelets 3.2 % (1.1-6.1); Lymphocytes # 0.9 K/mcL (0.6-4.6); Lymphocytes % 31.7 %; Mean Corpuscular HGB Conc 33.8 g/dL (31.6-35.5); Mean Corpuscular Hemoglobin 31.6 pg (28.0-33.3); Mean Corpuscular Volume 93.6 fL (83.0-100.0); Monocytes # 0.1 K/mcL (0.0-1.3); Monocytes % 3.7 %; Neutrophils # 1.6 K/mcL (1.6-8.9); Red Cell Distribution Width 19.8 % (11.5-14.5); Segmented Neutrophils % 60.9 %
[2017-09-03 08:25] LABS: Platelet Count 21 K/mcL (140-400)
[2017-09-03 08:27] LABS: Anisocytosis 2+ (Not Present); Platelet Estimate Decreased (Normal)
[2017-09-03 08:28] LABS: Helmet Cells Present (Not Present)
[2017-09-03 08:29] LABS: Burr Cells 2+ (Not Present)
[2017-09-03 08:30] LABS: Spherocytes 1+ (Not Present)
[2017-09-03 08:31] LABS: Poikilocytosis 2+ (Not Present)
[2017-09-03 08:41] LABS: Estimated Average Glucose 223 mg/dl; Hemoglobin A1C 9.4 %
[2017-09-03] MEDS: Insulin LISPRO 300 UNITS/3 ML VIAL SQ SCH ×4 (08:46→22:54)
[2017-09-03 10:44] LABS: Alanine Aminotransferase 86 Units/L (7-52); Albumin 2.2 g/dL (3.5-5.7); Albumin/Globulin Ratio 0.9 (1.1-2.2); Alkaline Phosphatase 73 Units/L (34-104); Aspartate Amino Transferase 57 Units/L (13-39); Bilirubin,Direct 0.4 mg/dL (0.0-0.2); Bilirubin,Indirect 0.8 mg/dL (0.0-1.2); Bilirubin,Total 1.2 mg/dL (0.3-1.0); Globulin 2.5 g/dL (2.4-3.5); Lactate Dehydrogenase 338 Units/L (140-271); Total Protein 4.7 g/dL (6.4-8.9)
[2017-09-03 11:23] LABS: Immature Reticulocyte % 14.4 % (11.0-38.0); Retculocyte # 0.05 M/mcL (0.05-0.10); Reticulocyte % 2.1 % (1.6-2.8)
[2017-09-03 13:57] LABS: Hematocrit 23.4 % (35.3-44.9); Hemoglobin 8.1 g/dL (11.5-15.4)
--- NOTE | 2017-09-03 16:45 | Internal Med Progress Note ---
Date of Encounter: 09/03/17 Time of Encounter: 09:00 - Assessment and plan (1) Acute kidney injury Current Visit: Yes Status: Resolved Assessment and plan: Resolved. Sr Cr WNL 0.82, GFR improved at > 60. Continue to monitor labs, continue IVF, avoid nephrotoxins. Likely due to dehydration and poor oral intake. (2) Anemia Current Visit: Yes Status: Acute Assessment and plan: Patient had EGD 09/01, esophagus was normal, localized mild inflammation and erythema found in the gastric fundus. A single 11 mm sessile polyp with no stigmata of recent bleeding was found in the prepyloric region of the stomach. It was not removed due to the low platelets and high INR. Examined duodenum was normal. Recommend EGD in 1 year to check polyp. Iron, percent sat, ferritin all high. B12 high, and folate is within normal limits. Reticulocyte count 0.05, total bilirubin is 1.2, AST 57, AST 86, LDH 338. Patient denies any dark or tarry stools, no melanic stools. Bedside guaiac negative 09/03. Trending hemoglobin every 6 hours. Hemoglobin remaining basically stable around 8.0. Hematology/Oncology consulted. Transfuse packed red blood cells if hemoglobin less than 7. Continue to monitor vital signs, gentle IV fluid hydration, monitor for signs of bleeding, monitor labs. Qualifiers: Anemia type: unspecified type Qualified Code(s): D64.9 - Anemia, unspecified (3) COPD (chronic obstructive pulmonary disease) Current Visit: Yes Status: Acute Assessment and plan: No acute exacerbation. Lungs are clear and diminished throughout. Pt on 3 liters 02 via n/c. Continue albuterol, Symbicort. 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 Qualifiers: COPD type: unspecified COPD Qualified Code(s): J44.9 - Chronic obstructive pulmonary disease, unspecified (4) Falls frequently Current Visit: Yes Status: Acute Assessment and plan: Patient reports increased frequency of falling at home due to weakness and fatigue. Monitor for safety and falls Up with assistance only Fall precautions PT/OT consulted, evaluation will be delayed d/t pt condition. (5) GI bleed Current Visit: Yes Status: Acute Assessment and plan: EGD completed 09/01. Patient has received 2 units of packed red blood cells as well as 2 units of platelets for suspected GI bleed. EGD showed no acute bleeding. Trending hemoglobins, will transfuse if less than 7.0. Patient denies melanic stools. Denies dark tarry stools. Bedside guaiac negative 09/03. Stool occult blood has been ordered, still pending. Continue to monitor for overt signs of bleeding. Trend labs and continue gentle IV fluid hydration. Qualifiers: GI bleed type/associated pathology: unspecified gastrointestinal hemorrhage type Qualified Code(s): K92.2 - Gastrointestinal hemorrhage, unspecified (6) Hyponatremia Current Visit: Yes Status: Acute Assessment and plan: 128 today. Continue IVF hydration. Trending sodium q4h through the night. (7) Type 2 diabetes mellitus Current Visit: Yes Status: Acute Assessment and plan: Sliding scale insulin, diabetic diet, Accu-Cheks before meals and at bedtime. A1c 9.4%. Pt reports non-compliance with accuchecks and diet. 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 No pharmacologic intervention due to anemia and blood loss. (9) Elevated troponin Current Visit: Yes Status: Acute Assessment and plan: Patient with mildly elevated troponin 0.04 x3. She denies any chest pain. Flat, adynamic elevation in the setting of elevated BNP, anemia, NADINE EKG pending Echo ordered and pending. Continue telemetry (10) Pancytopenia Current Visit: Yes Status: Acute Assessment and plan: Platelets 21 today, WBC 2.7 decreased from yesterday, RBC 2.50. 2 units of platelets and PRBCs transfused 08/31 with increase in both, however, levels falling. Pt had unremarkable EGD 09/01. Hematology/oncology consulted, I appreciate their recommendations. Will see pt tomorrow for possible bone marrow biopsy. Trending labs, monitor and transfuse prn - Time Spent With Patient Total time spent is greater than 50% in coordination of care (as documented) at patient's floor/unit and/or counseling patient: - Subjective Interval history: Pt was seen and assessed at bedside at 0900 AM. She is alert, awake, oriented 3. She denies any abdominal pain. She denies any dark tarry or melanic stools still. She denies headache or blurred vision, no neck pain or dizziness. She denies chest pain or shortness of breath. No abdominal pain, nausea, vomiting, or diarrhea. Pt is aware that hematology/oncology has been consulted and will see her tomorrow, questions answered. - Constitutional Vitals: Temp Pulse Resp BP Pulse Ox 97.7 F 82 14 94/64 99 09/03/17 15:48 09/03/17 15:48 09/03/17 15:48 09/03/17 15:48 09/03/17 15:48 General appearance: Present: cooperative, A&O X 3, pleasant, no acute distress, answers questions appropriately - Head Head exam: Present: atraumatic, normal inspection, normocephalic - Eye Eye exam: Present: normal appearance, conjuntiva pink, sclera anicteric - Neck Neck exam general surgery: Present: supple, trachea midline. Absent: lymphadenopathy, tenderness - Respiratory Respiratory exam: Present: CTAB. Absent: accessory muscle use, rales, respiratory distress, rhonchi, wheezes - Cardiovascular Cardiovascular exam: Present: RRR, +S1, +S2. Absent: diastolic murmur, gallop, rubs, systolic murmur - GI/Abdominal GI/Abdominal exam: Present: normal bowel sounds, soft. Absent: distended, hepatomegaly, tenderness - Extremities Exam Extremities exam: Present: normal capillary refill, normal inspection, warm, radial pulses palpable and symmetrical. Absent: calf tenderness, cyanotic, pedal edema, tenderness - Neurological Exam Neurological exam: Present: alert, oriented X3, no focal deficits. Absent: facial droop, speech deficit - Skin Skin exam: Present: dry, intact, pallor, warm. Absent: rash Internal Medicine: Result - Labs CBC & Chem 7: 09/03/17 13:46 09/03/17 06:00 Labs: Short CBC 09/02/17 09/02/17 09/03/17 Range/Units 17:31 23:24 06:00 WBC 2.7 L (4.3-11.1) K/mcL Hgb 8.0 L 8.0 L 7.9 L (11.5-15.4) g/dL Hct 22.5 L 23.9 L 23.4 L (35.3-44.9) % Plt Count 21 L* (140-400) K/mcL Neutrophils # 1.6 (1.6-8.9) K/mcL 09/03/17 Range/Units 13:46 WBC (4.3-11.1) K/mcL Hgb 8.1 L (11.5-15.4) g/dL Hct 23.4 L (35.3-44.9) % Plt Count (140-400) K/mcL Neutrophils # (1.6-8.9) K/mcL BMP 09/03/17 06:00 Sodium 128 L Potassium 4.1 Chloride 102 Carbon Dioxide 18 L BUN 46 H Creatinine 0.82 Glucose 119 H Calcium 7.3 L Cardiac Enzymes 09/02/17 09/02/17 Range/Units 17:31 23:24 Troponin I 0.04 H* 0.04 H* (< 0.04) ng/mL Liver Function 09/03/17 Range/Units 06:00 Total Bilirubin 1.2 H (0.3-1.0) mg/dL Direct Bilirubin 0.4 H (0.0-0.2) mg/dL AST 57 H (13-39) Units/L ALT 86 H (7-52) Units/L Alkaline Phosphatase 73 (34-104) Units/L Albumin 2.2 L (3.5-5.7) g/dL - ABG Interpretation ABG results: PT/INR, D-dimer PT 18.6 Seconds (9.4-12.1) H 08/31/17 16:46 Consult Discharge Plan - Plan Referrals: Siomara Chavez, VOCATIONAL HORTICULTURE INSTRUCTOR [Primary Care Provider] -
[2017-09-03 17:51] LABS: Hematocrit 25.1 % (35.3-44.9); Hemoglobin 8.6 g/dL (11.5-15.4)
[2017-09-03] MEDS ORDERED: 0.9 % Sodium Chloride 250 ML ONE (22:04)
--- NOTE | 2017-09-03 22:33 | Event Note ---
Date of Encounter: 09/03/17 Time of Encounter: 20:54 Alerted by patient's nurse BELEN Khan that pts. platelet level was 19, down from 41 yesterday. Pt. SOB but afebrile at 97.9F. 2 units of platelets ordered with transfusion order. Pt. sent to CT for chest which showed diffuse alveolar groundglass opacity within bilateral multifocal airspace disease. In addition, there are bilateral pleural effusions and interlobular septal thickening. Taken together these findings are most compatible with pulmonary edema. However superimposed pneumonia is very likely. This process was to follow to resolution given the nodular morphology of some of the airspace disease. There is evidence of relatively prominent mediastinal and hilar lymphadenopathy which is presumably reactive but again must be followed up. Evidence of diffuse anasarca with extensive subcutaneous edema. Pt. was hospitalized on 08/31 at [facility] in ICU. IVPB levaquin 750 mg daily ordered for pneumonia coverage. Blood cultures x2 ordered. Adjust abx coverage based on culture results. Platelet count ordered for 04:00. Pt. and f/u labs to be monitored closely.
[2017-09-03] MEDS ORDERED: Levofloxacin 750 MG/150 ML 750 MG/150 ML BAG IVPB SCH (23:00)
[2017-09-04] MEDS ORDERED: 0.9 % Sodium Chloride 250 ML ONE (00:16)
[2017-09-04] MEDS ORDERED: Levofloxacin 750 MG/150 ML 750 MG/150 ML BAG IVPB SCH (03:00)
[2017-09-04 05:04] LABS: Basophils % 0.9 %; Eosinophils % 0.9 %; Hematocrit 21.2 % (35.3-44.9); Hemoglobin 7.4 g/dL (11.5-15.4); Red Cell Distribution Width 18.9 % (11.5-14.5)
[2017-09-04 05:06] LABS: Hematocrit 21.2 % (35.3-44.9); Hemoglobin 7.3 g/dL (11.5-15.4); Immature Granulocytes % 1.9 % (0-4); Immature Platelets 1.9 % (1.1-6.1); Lymphocytes # 0.6 K/mcL (0.6-4.6); Lymphocytes % 28.2 %; Mean Corpuscular HGB Conc 34.4 g/dL (31.6-35.5); Mean Corpuscular Hemoglobin 30.9 pg (28.0-33.3); Mean Corpuscular Volume 89.8 fL (83.0-100.0); Monocytes # 0.1 K/mcL (0.0-1.3); Monocytes % 4.2 %; Neutrophils # 1.4 K/mcL (1.6-8.9); Red Blood Count 2.36 M/mcL (3.82-4.97); Segmented Neutrophils % 63.9 %
[2017-09-04 05:22] LABS: BUN/Creatinine Ratio 49 (6-26); Blood Urea Nitrogen 40 mg/dL (8-23); Calcium 7.5 mg/dL (8.6-10.3); Carbon Dioxide 23 mEq/L (23-29); Chloride 100 mEq/L (98-107); Glucose 153 mg/dL (70-105); Osmolality,Calculated 281 (280-300); Potassium 3.9 mEq/L (3.5-5.1); Sodium 129 mEq/L (136-145); eGFR For African Americans > 60 (> 60); eGFR For Non-African Americans > 60 (> 60)
[2017-09-04 05:25] LABS: Platelet Count 61 K/mcL (140-400)
[2017-09-04 05:27] LABS: Platelet Estimate Decreased (Normal)
[2017-09-04 07:43] LABS: Hemoglobin 7.3 g/dL (11.5-15.4)
[2017-09-04] MEDS: Insulin LISPRO 300 UNITS/3 ML VIAL SQ SCH ×4 (07:46→20:51)
[2017-09-04] MEDS: Budesonide/Formoterol 80/4.5 MDI IH SCH ×2 (07:58→21:34)
--- NOTE | 2017-09-04 08:40 | Internal Med Progress Note ---
<Bogdan Monroe - Last Filed: 09/04/17 15:11> Date of Encounter: 09/04/17 Time of Encounter: 08:45 - Assessment and plan (1) GI bleed Current Visit: Yes Status: Acute Assessment and plan: EGD completed 09/01. Patient has received 2 units of packed red blood cells as well as 2 units of platelets for suspected GI bleed. EGD showed no acute bleeding. Trending hemoglobins, will transfuse if less than 7.0. Patient denies melanic stools. Denies dark tarry stools. Bedside guaiac negative 09/03. Stool occult blood has been ordered, still pending. Continue to monitor for overt signs of bleeding. Trend labs and continue gentle IV fluid hydration. Qualifiers: GI bleed type/associated pathology: unspecified gastrointestinal hemorrhage type Qualified Code(s): K92.2 - Gastrointestinal hemorrhage, unspecified (2) Type 2 diabetes mellitus Current Visit: Yes Status: Acute Assessment and plan: Sliding scale insulin, diabetic diet, Accu-Cheks before meals and at bedtime. A1c 9.4%. 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 A single 11 mm sessile polyp with no stigmata of recent bleeding was found in the prepyloric region of the stomach. It was not removed due to the low platelets and high INR. Examined duodenum was normal. Recommend EGD in 1 year to check polyp. Iron, percent sat, ferritin all high. B12 high, and folate is within normal limits. Reticulocyte count 0.05, total bilirubin is 1.2, AST 57, AST 86, LDH 338. Patient denies any dark or tarry stools, no melanic stools. Bedside guaiac negative 09/03. Trending hemoglobin every 6 hours. Hemoglobin remaining basically stable around 8.0. Hematology/Oncology consulted. Transfuse packed red blood cells if hemoglobin less than 7. Continue to monitor vital signs, gentle IV fluid hydration, monitor for signs of bleeding, monitor labs. Update 09/04 Hemoglobin improved slightly overnight Started Ferrous sulfate for apparent iron deficiency Consult to Heme/Onc, appreciate recommendations Qualifiers: Anemia type: unspecified type Qualified Code(s): D64.9 - Anemia, unspecified (4) Falls frequently Current Visit: Yes Status: Acute Assessment and plan: Patient reports increased frequency of falling at home due to weakness and fatigue. Monitor for safety and falls Up with assistance only Fall precautions PT/OT consulted, evaluation will be delayed d/t pt condition. (5) Acute kidney injury Current Visit: Yes Status: Resolved Assessment and plan: Resolved. Sr Cr WNL 0.82, GFR improved at > 60. Continue to monitor labs, continue IVF, avoid nephrotoxins. Likely due to dehydration and poor oral intake (6) COPD (chronic obstructive pulmonary disease) Current Visit: Yes Status: Acute Assessment and plan: No acute exacerbation. Lungs are clear and diminished throughout. Pt on 3 liters 02 via n/c, titrate to goal SpO2 88-92% Continue albuterol, Symbicort. Continue hospital supervisor vital signs including pulse ox. Qualifiers: COPD type: unspecified COPD Qualified Code(s): J44.9 - Chronic obstructive pulmonary disease, unspecified (7) Hyponatremia Current Visit: Yes Status: Acute Assessment and plan: 129 today, appears chronic Continue IVF hydration. Repeat BMP in the morning (8) DVT prophylaxis Current Visit: Yes Status: Acute Assessment and plan: SCDs. No pharmacologic intervention due to anemia and blood loss. (9) Pancytopenia Current Visit: Yes Status: Acute Assessment and plan: Pancytopenia Hgb 7.3, WBC 2.2, Plt 61 s/p 2u PRBC and 4u FFP The patient has decreased iron stores per iron panel, and elevated LDH Concern for SIDDHARTH possibly due to Hemolysis We will begin repletion with Ferrous sulfate Consult Heme/Onc - Time Spent With Patient Total time spent is greater than 50% in coordination of care (as documented) at patient's floor/unit and/or counseling patient: - Subjective Interval history: The patient is seen and examined at bedside. She is eating her food at the time of examination. She says that she is feeling significantly better than she was prior, however she feels that she still is having weakness in her lower extremities. - Constitutional Vitals: Temp Pulse Resp BP Pulse Ox 98.5 F 85 18 110/65 96 09/04/17 07:16 09/04/17 07:16 09/04/17 07:16 09/04/17 07:16 09/04/17 07:53 General appearance: Present: cooperative, A&O X 3, pleasant, no acute distress, answers questions appropriately Exam: Gen: Vitals noted. No acute distress. AAOx3 HEENT: oropharynx clear, Normocephalic, atraumatic Neck: Supple. No adenopathy. 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 Psych: Appropriate mood and behavior Internal Medicine: Result - Labs CBC & Chem 7: 09/04/17 07:26 09/04/17 07:26 Labs: Short CBC 09/03/17 09/03/17 09/03/17 Range/Units 06:00 13:46 17:41 WBC 2.7 L (4.3-11.1) K/mcL Hgb 7.9 L 8.1 L 8.6 L (11.5-15.4) g/dL Hct 23.4 L 23.4 L 25.1 L (35.3-44.9) % Plt Count 21 L* (140-400) K/mcL Neutrophils # 1.6 (1.6-8.9) K/mcL 09/03/17 09/04/17 09/04/17 Range/Units 20:41 04:35 04:35 WBC 2.2 L (4.3-11.1) K/mcL Hgb 7.3 L 7.4 L (11.5-15.4) g/dL Hct 21.2 L 21.2 L (35.3-44.9) % Plt Count 19 L* 61 L D (140-400) K/mcL Neutrophils # 1.4 L (1.6-8.9) K/mcL 09/04/17 Range/Units 07:26 WBC (4.3-11.1) K/mcL Hgb 7.3 L (11.5-15.4) g/dL Hct 21.0 L (35.3-44.9) % Plt Count (140-400) K/mcL Neutrophils # (1.6-8.9) K/mcL BMP 09/03/17 09/03/17 09/03/17 06:00 17:41 20:41 Sodium 128 L 127 L 128 L Potassium 4.1 Chloride 102 Carbon Dioxide 18 L BUN 46 H Creatinine 0.82 Glucose 119 H Calcium 7.3 L 09/04/17 09/04/17 09/04/17 04:35 04:35 07:26 Sodium 129 L 128 L 129 L Potassium 3.9 Chloride 100 Carbon Dioxide 23 BUN 40 H Creatinine 0.82 Glucose 153 H Calcium 7.5 L Liver Function 09/03/17 Range/Units 06:00 Total Bilirubin 1.2 H (0.3-1.0) mg/dL Direct Bilirubin 0.4 H (0.0-0.2) mg/dL AST 57 H (13-39) Units/L ALT 86 H (7-52) Units/L Alkaline Phosphatase 73 (34-104) Units/L Albumin 2.2 L (3.5-5.7) g/dL - ABG Interpretation ABG results: PT/INR, D-dimer PT 18.6 Seconds (9.4-12.1) H 08/31/17 16:46 - Impressions Impressions Chest CT 09/03/17 20:19 IMPRESSION: Diffuse alveolar ground-glass opacity, within bilateral multifocal airspace disease. In addition, there are bilateral pleural effusions and interlobular septal thickening. Taken together, these findings are most compatible with pulmonary edema. However, superimposed pneumonia is very likely. This process must be followed to resolution given the nodular morphology of some of the airspace disease. There is evidence of relatively prominent mediastinal and hilar lymphadenopathy, which is presumably reactive, but again must be followed up. Evidence of diffuse anasarca with extensive subcutaneous edema. D/ / Elfego Shin MD / Elfego Shin MD Interpreting Provider: Elfego Shin MD Consult Discharge Plan - Plan Referrals: Siomara Chavez, [facility] [facility] [Primary Care Provider] - <Doroteo Summers - Last Filed: 09/04/17 15:45> Date of Encounter: 09/04/17 - Assessment and plan (1) DVT prophylaxis Current Visit: Yes Status: Acute (2) GI bleed Current Visit: Yes Status: Acute Qualifiers: GI bleed type/associated pathology: unspecified gastrointestinal hemorrhage type Qualified Code(s): K92.2 - Gastrointestinal hemorrhage, unspecified (3) Type 2 diabetes mellitus Current Visit: Yes Status: Acute Qualifiers: Diabetes mellitus alf insulin use: with manufacturing tech use Diabetes mellitus complication status: without complication Qualified Code(s): E11.9 - Type 2 diabetes mellitus without complications; 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 (4) Falls frequently Current Visit: Yes Status: Acute (5) Anemia Current Visit: Yes Status: Acute Qualifiers: Anemia type: unspecified type Qualified Code(s): D64.9 - Anemia, unspecified (6) Acute kidney injury Current Visit: Yes Status: Resolved (7) COPD (chronic obstructive pulmonary disease) Current Visit: Yes Status: Acute Qualifiers: COPD type: unspecified COPD Qualified Code(s): J44.9 - Chronic obstructive pulmonary disease, unspecified (8) Hyponatremia Current Visit: Yes Status: Acute (9) Pancytopenia Current Visit: Yes Status: Acute - Time Spent With Patient Total time spent is greater than 50% in coordination of care (as documented) at patient's floor/unit and/or counseling patient: - Constitutional Vitals: Temp Pulse Resp BP Pulse Ox 97.6 F 88 18 137/77 98 09/04/17 15:02 09/04/17 15:02 09/04/17 15:02 09/04/17 15:02 09/04/17 15:02 Internal Medicine: Result - Labs CBC & Chem 7: 09/04/17 07:26 09/04/17 07:26 Labs: Short CBC 09/03/17 09/03/17 09/04/17 Range/Units 17:41 20:41 04:35 WBC 2.2 L (4.3-11.1) K/mcL Hgb 8.6 L 7.3 L (11.5-15.4) g/dL Hct 25.1 L 21.2 L (35.3-44.9) % Plt Count 19 L* 61 L D (140-400) K/mcL Neutrophils # 1.4 L (1.6-8.9) K/mcL 09/04/17 09/04/17 Range/Units 04:35 07:26 WBC (4.3-11.1) K/mcL Hgb 7.4 L 7.3 L (11.5-15.4) g/dL Hct 21.2 L 21.0 L (35.3-44.9) % Plt Count (140-400) K/mcL Neutrophils # (1.6-8.9) K/mcL BMP 09/03/17 09/03/17 09/04/17 17:41 20:41 04:35 Sodium 127 L 128 L 129 L Potassium 3.9 Chloride 100 Carbon Dioxide 23 BUN 40 H Creatinine 0.82 Glucose 153 H Calcium 7.5 L 09/04/17 09/04/17 04:35 07:26 Sodium 128 L 129 L Potassium Chloride Carbon Dioxide BUN Creatinine Glucose Calcium - ABG Interpretation ABG results: PT/INR, D-dimer PT 12.9 Seconds (9.4-12.1) H 09/04/17 11:18 - Impressions Impressions Chest CT 09/03/17 20:19 IMPRESSION: Diffuse alveolar ground-glass opacity, within bilateral multifocal airspace disease. In addition, there are bilateral pleural effusions and interlobular septal thickening. Taken together, these findings are most compatible with pulmonary edema. However, superimposed pneumonia is very likely. This process must be followed to resolution given the nodular morphology of some of the airspace disease. There is evidence of relatively prominent mediastinal and hilar lymphadenopathy, which is presumably reactive, but again must be followed up. Evidence of diffuse anasarca with extensive subcutaneous edema. D/ / Elfego Shin MD / Elfego Shin MD Interpreting Provider: Elfego Shin MD Echocardiogram 09/04/17 14:00 Impressions: LVEF 55%. Normal LV chamber size, wall thickness and function. Moderate left ventricular diastolic dysfunction. Normal right ventricular structure and function. Mild tricuspid regurgitation. Mild-moderate pulmonary hypertension. Estimated RVSP is 47 mmHg. Left Ventricular Wall Motion: Rest Echo Findings All wall segments showed normal motion. Findings: Study Quality * Technically sub-optimal due to poor echocardiographic windows. ECG Findings * Normal sinus rhythm. Left Ventricle * LVEF 55%. * Normal LV chamber size, wall thickness and function. * Moderate left ventricular diastolic dysfunction. Right Ventricle * Normal right ventricular structure and function. Left Atrium * Mildly dilated left atrium. Right Atrium * Normal right atrial size. Interatrial Septum * Interatrial septum not well evaluated. Aortic Valve * Aortic valve not well visualized. * Mildly sclerotic aortic valve leaflets. * No aortic regurgitation. * No aortic stenosis. Mitral Valve * Mild mitral annular calcification * Mildly thickened and calcified mitral valve leaflets. * Trace mitral regurgitation. * No significant mitral stenosis. Mean gradient 4 mmHg. Tricuspid Valve * Normal tricuspid valve structure. * Mild tricuspid regurgitation. * Mild-moderate pulmonary hypertension. * Estimated RVSP is 47 mmHg. * Estimated RA pressure is 5 mmHg. Pulmonic Valve * Pulmonic valve is not well visualized. Aorta * Normally sized aortic root. Pericardium * The pericardium appears normal. IVC * Normal IVC dimensions and inspiratory collapse. Pulmonary Artery * Normal visualized portions of the main pulmonary artery. - Attending Attestation I examined this patient and my medical decision-making was reviewed with the Resident Physician on 09/04/17. I agree with the documented findings, disposition and treatment plan as described except to the extent set forth below. Patient is chronically ill-loking, cachectic. normal labs 10/2016, now with pancytopenia, requiring transfusions, s/p EGD with no evident GIB. Has anasarca, CT abdomen and pelvis with calcifications but no masses or lesions. ECHO showed moderate LVDD>, with Pulm HTN. Start on gentle diuresis, IR for thoracentensis, send fluid work up including cytology, oncology eval is pending , DM is uncontrolled, continue insulin COPD not in exacerbation, Hyponatremia - suspect chronic, continue other management. rest of details as in the resident physician's documentation
[2017-09-04] MEDS ORDERED: Furosemide 20 MG/2 ML VIAL IVP ONE (11:19)
[2017-09-04 12:12] LABS: INR 1.2; Prothrombin Time 12.9 Seconds (9.4-12.1)
--- NOTE | 2017-09-04 14:47 | Oncology Inp Consult Note ---
<GodfreyKalyan - Last Filed: 09/05/17 10:58> Date of Encounter: 09/04/17 - Data of Consult Requesting Physician: Jimi Thomas DO Primary Care Provider: Siomara Chavez CNP - Consult Narrative History of present illness: Ms. Mckeon is a 71 year old female Medications and Allergies Albuterol Sulfate [Ventolin Hfa] 18 gm IH Q4HR PRN 11/05/16 [History] Citalopram Hydrobromide [Citalopram HBr] 40 mg PO DAILY 11/05/16 [History] Clopidogrel [Plavix] 75 mg PO DAILY 11/05/16 [History] Fluticasone/Salmeterol [Advair 250-50 Diskus] 1 each IH BID 11/05/16 [History] Insulin Glargine,Hum.rec.anlog [Lantus Solostar] 10 unit SQ DAILY 11/05/16 [ History] Omeprazole 20 mg PO DAILY 11/05/16 [History] Oxybutynin Chloride [Ditropan Xl] 15 mg PO DAILY 11/05/16 [History] Atorvastatin [Lipitor] 20 mg PO HS 08/31/17 [History] Ketotifen Fumarate [Zaditor] 1 - 2 drop OP DAILY 08/31/17 [History] Montelukast Sodium [Singulair] 10 mg PO DAILY 08/31/17 [History] 3 Allergy/AdvReac Type Severity Reaction Status Date / Time Penicillins Allergy Anaphylaxis Verified 08/31/17 17:12 Oncology - Exam - Constitutional Vitals: Temp Pulse Resp BP Pulse Ox 98.3 F 74 15 126/59 98 09/05/17 04:00 09/05/17 06:40 09/05/17 07:59 09/05/17 06:40 09/05/17 07:59 Oncology - Results Labs: Short CBC 09/05/17 Range/Units 04:00 WBC 1.9 L (4.3-11.1) K/mcL Hgb 7.3 L (11.5-15.4) g/dL Hct 20.8 L (35.3-44.9) % Plt Count 33 L (140-400) K/mcL Neutrophils # 1.0 L (1.6-8.9) K/mcL BMP 09/05/17 04:00 Sodium 129 L Potassium 3.6 Chloride 99 Carbon Dioxide 21 L BUN 34 H Creatinine 0.75 Glucose 112 H Calcium 7.3 L Liver Function 09/05/17 Range/Units 04:00 Total Bilirubin 1.0 (0.3-1.0) mg/dL AST 25 (13-39) Units/L ALT 55 H (7-52) Units/L Alkaline Phosphatase 58 (34-104) Units/L Albumin 2.1 L (3.5-5.7) g/dL Consult Discharge Plan - Plan Referrals: Siomara Chavez, MANUFACTURING GROUP LEADER [Primary Care Provider] - - Attending Attestation Seen and examined patient and agree with assessment and plan. I suspect that she has a viral syndrome that may have caused a myocarditis and secondary cardiomyopathy and concomittant marrow suppression. Her initial presentation of lactic acidosis, elevated LDH, hyperbilirubinemia, weakness, and CHF, and pancytopenia would be consistant with a person oin high output cardiac failure as a result of severe anemia and cardiomyopathy. now that the CHF is improving with transfusions and supportive care, all parameters have improved except for her pancytopenia. I would defer bone marrow bx for now to see if the poancytopenia improves at all. If not then BM Bx would be ultimately indicated. <Sravanthi Wahl - Last Filed: 09/05/17 12:42> Date of Encounter: 09/04/17 Time of Encounter: 14:43 Assessment and Plan (1) Pancytopenia Status: Acute Assessment and plan: Appears acute on current admission. Normocytic, normochromic anemia. S/P EGD without clear etiology for bleeding, polyp located in the prepyloric region-unable to remove secondary to thrombocytopenia and INR Bedside guaiac negative, occult stool pending. B12 >1500 Folate normal TSH mildly elevated 6.2-defer to primary team Iron and ferritin, replete LDH elevated at 338 (improved from 788 on admission). Check gregory. Haptoglobin Ceruloplasmin and copper-pending Discussed recent CT abdomen/pelvis with radiologist-no evidence of splenomegaly/ hepatic cirrhosis. Ms. Mckeon presented with hyponatremia, BNP 2837 and radiographic evidence of bilateral pleural effusions, with mild abdominopelvic ascites and body wall anasarca suggesting fluid overload. Euvolemic on exam. Echo today does show LVEF 55%, Normal LV chamber size, wall thickness and function, Moderate left ventricular diastolic dysfunction. Of note, patient does report that both her and her seemed to have contracted an illness about 2 months ago and have been increasingly fatigued since this time to the point where they slept very often. Her is currently admitted to the ICU with presentation of similar new onset heart failure. Discussed case in detail with Dr. Donahue. Recommend on holding off on bone marrow at this time to continue to monitor blood counts. Suspect that patient may have contracted a viral illness which causing her symptom display. Suspect patient may have a component of acute myocarditis with cardiomyopathy resulting in high output cardiac failure (with third spacing, fluid retention, hyponatremia) and concomitant bone marrow suppression causing cytopenias. Other labs have improved with supportive treatment since admission however, her pancytopenia persists. If cytopenias persist or worsen, above theory may not hold true and patient may need bone marrow to rule out other malignant etiology , however, would recommend holding off on bone marrow at this time. Ordered respiratory infection panel. Will re-evaluate tomorrow. Please refer to Dr. Donahue's attestation below for additional details. - Data of Consult Patient: new to practice Consult date: 09/04/17 Requesting Physician: Aidan Moreau Primary Care Provider: Siomara Chavez CNP - Consult Narrative Reason for consult: Pacytopenia History of present illness: Ms. Mckeon is a 71 year old female with past medical history significant for asthma, COPD, CVA, diabetes, hyperlipidemia. Patient presented to [facility] ER with report of increased generalized weakness and falls at home. She was found to have a platelet count of 10 and anemia with hgb 5.6. She was later transferred to [facility] for inpatient admission for panyctopenia, potential GI bleed with report of melanic stools, NADINE, COPD and hyponatremia. Imaging: CT head- no acute abnormality CXR-Mild bilateral effusions and mild increased interstitial changes- atypical pneumonia versus pulmonary edema. CT abdomen/pelvis- Bilateral pleural effusions, with mild abdominopelvic ascites and body wall anasarca suggesting fluid overload. Patchy opacity at the lung bases, either atelectasis or pneumonia. CT chest- Findings suggestive of pulmonary edema vs. superimopsed pneumonia. There is evidence of relatively prominent mediastinal and hilar lymphadenopathy, which is presumably reactive, but again must be followed up. Evidence of diffuse anasarca with extensive subcutaneous edema. S/P EGD- single sessile polyp in the prepyloric region-unable to resect due to recent plavix use and elevated INR. Recommend repeat EGD in 1 year. Past Med Surg Social Fam HX - Past Medical History Medical history: asthma, COPD, CVA, diabetes, hyperlipidemia Psychiatric history: no psych history - Past Surgical History Surgical History: thyroidectomy - Social History Smoking Status: Current every day smoker Smokeless Tobacco Status: No Alcohol use: none Drug use: none Constitutional: Present: anorexia, chills, fatigue, malaise, weakness. Absent: fever(s) Additional comments: denies recent travel or sick contacts. Lives at home with , pets include one dog and one cat Eyes: Absent: change in vision Cardiovascular: Absent: chest pain, irregular heart rhythm Respiratory: Present: cough, dyspnea. Absent: hemoptysis Gastrointestinal: Absent: abdominal pain, hematochezia, melena, nausea, vomiting Genitourinary: Absent: dysuria, hematuria Musculoskeletal: Present: muscle weakness Integumentary: Absent: rash, wounds Neurological: Present: frequent falls (prior to admission secondary to weakness) . Absent: focal weakness Hematologic/Lymphatic: Present: as per HPI Oncology - Exam - Constitutional Vitals: Temp Pulse Resp BP Pulse Ox 97.4 F L 87 17 134/64 96 09/04/17 11:57 09/04/17 11:57 09/04/17 11:57 09/04/17 11:57 09/04/17 11:57 General appearance: cooperative, no acute distress, no febrile Exam: chronically ill appearing - Head Head exam: Present: atraumatic - ENT ENT exam: Present: mucous membranes moist - Respiratory Respiratory exam: Present: decreased breath sounds. Absent: respiratory distress - Cardiovascular Cardiovascular exam: Present: RRR, +S1, +S2 - GI/Abdominal GI/Abdominal exam: Present: normal bowel sounds, soft. Absent: tenderness - Extremities Exam Extremities exam: Present: normal inspection. Absent: calf tenderness - Neurological Exam Neurological exam: Present: alert, oriented X3, no focal deficits, strengths equal and symetr throughout - Psychiatric Psychiatric exam: Present: normal affect, normal mood - Skin Skin exam: Present: dry, intact, pallor, warm Oncology - Results Labs: Short CBC 09/03/17 09/03/17 09/04/17 Range/Units 17:41 20:41 04:35 WBC 2.2 L (4.3-11.1) K/mcL Hgb 8.6 L 7.3 L (11.5-15.4) g/dL Hct 25.1 L 21.2 L (35.3-44.9) % Plt Count 19 L* 61 L D (140-400) K/mcL Neutrophils # 1.4 L (1.6-8.9) K/mcL 09/04/17 09/04/17 Range/Units 04:35 07:26 WBC (4.3-11.1) K/mcL Hgb 7.4 L 7.3 L (11.5-15.4) g/dL Hct 21.2 L 21.0 L (35.3-44.9) % Plt Count (140-400) K/mcL Neutrophils # (1.6-8.9) K/mcL BMP 09/03/17 09/03/17 09/04/17 17:41 20:41 04:35 Sodium 127 L 128 L 129 L Potassium 3.9 Chloride 100 Carbon Dioxide 23 BUN 40 H Creatinine 0.82 Glucose 153 H Calcium 7.5 L 09/04/17 09/04/17 04:35 07:26 Sodium 128 L 129 L Potassium Chloride Carbon Dioxide BUN Creatinine Glucose Calcium
[2017-09-04] MEDS: Acetaminophen 325 MG TABLET PO PRN (20:59)
[2017-09-04 23:42] LABS: Adenovirus Not Detected (Not Detect); Bordetella Pertussis Not Detected (Not Detect); Chlamydophila pneumoniae Not Detected (Not Detect); Coronavirus 229E Not Detected (Not Detect); Coronavirus HKU1 Not Detected (Not Detect); Coronavirus NL63 Not Detected (Not Detect); Coronavirus OC43 Not Detected (Not Detect); Human Metapneumovirus Not Detected (Not Detect); Human Rhinovirus/Enterovirus Not Detected (Not Detect); Influenza A Subtype 2009 H1 Not Detected (Not Detect); Influenza A Untypeable Not Detected (Not Detect); Influenza B Not Detected (Not Detect); Mycoplasma pneumoniae Not Detected (Not Detect); Parainfluenza Virus 1 Not Detected (Not Detect); Parainfluenza Virus 2 Not Detected (Not Detect); Parainfluenza Virus 3 Not Detected (Not Detect); Parainfluenza Virus 4 Not Detected (Not Detect); Respiratory Syncytial Virus Not Detected (Not Detect)
[2017-09-05 05:03] LABS: Basophils % 0.5 %
[2017-09-05 05:04] LABS: Eosinophils % 0.5 %; Hematocrit 20.8 % (35.3-44.9); Hemoglobin 7.3 g/dL (11.5-15.4); Immature Granulocytes % 1.5 % (0-4); Lymphocytes # 0.8 K/mcL (0.6-4.6); Lymphocytes % 39.7 %; Mean Corpuscular HGB Conc 35.1 g/dL (31.6-35.5); Mean Corpuscular Hemoglobin 31.5 pg (28.0-33.3); Mean Corpuscular Volume 89.7 fL (83.0-100.0); Mean Platelet Volume 9.9 fL (9.4-12.4); Monocytes # 0.1 K/mcL (0.0-1.3); Monocytes % 3.1 %; Red Blood Count 2.32 M/mcL (3.82-4.97); Segmented Neutrophils % 54.7 %
[2017-09-05 05:12] LABS: Platelet Count 33 K/mcL (140-400)
[2017-09-05 05:25] LABS: Alanine Aminotransferase 55 Units/L (7-52); Albumin 2.1 g/dL (3.5-5.7); Albumin/Globulin Ratio 0.8 (1.1-2.2); Alkaline Phosphatase 58 Units/L (34-104); Aspartate Amino Transferase 25 Units/L (13-39); BUN/Creatinine Ratio 45 (6-26); Blood Urea Nitrogen 34 mg/dL (8-23); Calcium 7.3 mg/dL (8.6-10.3); Carbon Dioxide 21 mEq/L (23-29); Chloride 99 mEq/L (98-107); Globulin 2.5 g/dL (2.4-3.5); Glucose 112 mg/dL (70-105); Osmolality,Calculated 276 (280-300); Potassium 3.6 mEq/L (3.5-5.1); Sodium 129 mEq/L (136-145); Total Protein 4.6 g/dL (6.4-8.9); eGFR For African Americans > 60 (> 60); eGFR For Non-African Americans > 60 (> 60)
[2017-09-05 05:40] LABS: Platelet Estimate Decreased (Normal)
[2017-09-05 05:41] LABS: Anisocytosis 1+ (Not Present); Burr Cells 1+ (Not Present)
[2017-09-05] MEDS: Budesonide/Formoterol 80/4.5 MDI IH SCH ×2 (07:57→21:04)
[2017-09-05] MEDS ORDERED: Furosemide 20 MG/2 ML VIAL IVP SCH (09:00)
[2017-09-05] MEDS: Insulin LISPRO 300 UNITS/3 ML VIAL SQ SCH ×3 (09:12→23:03)
--- NOTE | 2017-09-05 12:48 | Oncology Inp Progress Note ---
<Sravanthi Wahl L - Last Filed: 09/05/17 13:03> Date of Encounter: 09/05/17 Time of Encounter: 11:45 (1) Pancytopenia Current Visit: Yes Status: Acute Assessment and plan: Appears acute on current admission. Normocytic, normochromic anemia. S/P EGD without clear etiology for bleeding, polyp located in the prepyloric region-unable to remove secondary to thrombocytopenia and INR Bedside guaiac negative, occult stool-pending. B12 >1500 Folate normal TSH mildly elevated 6.2-defer to primary team Iron and ferritin, replete LDH elevated at 338 (improved from 788 on admission). Myke negative-does not fit hemolysis picture Haptoglobin Ceruloplasmin and copper-pending Discussed recent CT abdomen/pelvis with radiologist-no evidence of splenomegaly/ hepatic cirrhosis. Ms. Mckeon presented with hyponatremia, BNP 2837 and radiographic evidence of bilateral pleural effusions, with mild abdominopelvic ascites and body wall anasarca suggesting fluid overload. Euvolemic on exam. Echo does show LVEF 55%, Normal LV chamber size, wall thickness and function, Moderate left ventricular diastolic dysfunction. Of note, patient does report that both her and her seemed to have contracted an illness about 2 months ago and have been increasingly fatigued since this time to the point where they slept very often. Her is currently admitted to the ICU with presentation of similar new onset heart failure. Her hgb is stable at 7.3 today, ANC 1.0, WBC 1.9, platelets have decreased further today to 33. Suspect viral etiology which has caused presenting symptoms including lactic acidosis, elevated LDH, hyperbilirubinemia, weakness, and CHF- all of which have improved other than patients pancytopenia which persists. Discussed case with ID. Ordered ESR, CRP, TOMEKA, CPK to assess for autoimmune/vasculitis Respiratory panel has resulted negative-check coxsackie serology Presentation suspicious for tickborne illness-starting doxycycline prophylactically to see if there is an improvement within her pancytopenia Repeat LDH and BNP in am Continue to hold on BMB and plan to reassess labs in am. If pancytopenia persists or worsens patient may benefit from bone marrow biopsy. NPO after MN. Oncology: Subj Interval history: Ms. Mckeon is resting in her chair. She denies pain, chest pain, nausea, vomiting or diarrhea. Continues to wear O2 2L which is new for her, she does continue to report increased SOB with exertion. No events overnight. - Constitutional Vitals: Vital Signs Temp Pulse Resp BP Pulse Ox 09/05/17 11:14 84 17 103/46 09/05/17 07:59 15 98 09/05/17 06:40 74 15 126/59 98 09/05/17 04:00 98.3 F 79 17 111/78 98 09/05/17 00:04 98.7 F 87 17 111/43 96 09/04/17 21:34 16 89 09/04/17 19:57 98.4 F 90 15 115/62 92 09/04/17 15:02 97.6 F 88 18 137/77 98 Intake and Output 09/04/17 09/05/17 09/05/17 23:59 07:59 15:59 Intake Total 240 / 240 240 / 240 Balance 240 / 240 240 / 240 Intake: Oral 240 / 240 240 / 240 Other: Meal Breakfast Percent of Meal Consumed 100% # Voids 0 # Urine Diapers 1 1 Weight 65 kg Blood Glucose* 102 122 304 Patient Weight 09/05/17 23:59 Weight 65 kg General appearance: cooperative, no acute distress, no febrile - Head Head exam: Present: atraumatic - ENT ENT exam: Present: mucous membranes moist - Respiratory Respiratory exam: Present: decreased breath sounds. Absent: respiratory distress - Cardiovascular Cardiovascular exam: Present: RRR, +S1, +S2 - GI/Abdominal GI/Abdominal exam: Present: normal bowel sounds, soft. Absent: tenderness - Extremities Exam Extremities exam: Present: normal inspection. Absent: calf tenderness - Neurological Exam Neurological exam: Present: alert, oriented X3, no focal deficits, strengths equal and symetr throughout - Psychiatric Psychiatric exam: Present: normal affect, normal mood - Skin Skin exam: Present: dry, intact, normal color, warm Oncology: Obj Data - Labs CBC & Chem 7: 09/05/17 04:00 09/05/17 04:00 - Impressions Impressions Hip X-Ray 08/31/17 17:55 IMPRESSION: No acute osseous abnormality. D/ / 09/01/2017 06:57:32 Jon Lord MD / [email or web address] Interpreting Provider: Jon Lord MD Echocardiogram 05/14/18 14:00 Impressions: LVEF 55%. Normal LV chamber size, wall thickness and function. Moderate left ventricular diastolic dysfunction. Normal right ventricular structure and function. Mild tricuspid regurgitation. Mild-moderate pulmonary hypertension. Estimated RVSP is 47 mmHg. Left Ventricular Wall Motion: Rest Echo Findings All wall segments showed normal motion. Findings: Study Quality * Technically sub-optimal due to poor echocardiographic windows. ECG Findings * Normal sinus rhythm. Left Ventricle * LVEF 55%. * Normal LV chamber size, wall thickness and function. * Moderate left ventricular diastolic dysfunction. Right Ventricle * Normal right ventricular structure and function. Left Atrium * Mildly dilated left atrium. Right Atrium * Normal right atrial size. Interatrial Septum * Interatrial septum not well evaluated. Aortic Valve * Aortic valve not well visualized. * Mildly sclerotic aortic valve leaflets. * No aortic regurgitation. * No aortic stenosis. Mitral Valve * Mild mitral annular calcification * Mildly thickened and calcified mitral valve leaflets. * Trace mitral regurgitation. * No significant mitral stenosis. Mean gradient 4 mmHg. Tricuspid Valve * Normal tricuspid valve structure. * Mild tricuspid regurgitation. * Mild-moderate pulmonary hypertension. * Estimated RVSP is 47 mmHg. * Estimated RA pressure is 5 mmHg. Pulmonic Valve * Pulmonic valve is not well visualized. Aorta * Normally sized aortic root. Pericardium * The pericardium appears normal. IVC * Normal IVC dimensions and inspiratory collapse. Pulmonary Artery * Normal visualized portions of the main pulmonary artery. - ABG Interpretation ABG results: PT/INR, D-dimer PT 12.9 Seconds (9.4-12.1) H 09/04/17 11:18 Consult Discharge Plan - Plan Referrals: Siomara Chavez, ROLL FILLER [Primary Care Provider] - <Kaylan Donahue - Last Filed: 09/05/17 20:15> Date of Encounter: 09/05/17 - Constitutional Vitals: Vital Signs Temp Pulse Resp BP Pulse Ox 09/05/17 15:00 97.4 F L 86 15 115/50 09/05/17 11:14 84 17 103/46 09/05/17 07:59 15 98 09/05/17 06:40 74 15 126/59 98 09/05/17 04:00 98.3 F 79 17 111/78 98 09/05/17 00:04 98.7 F 87 17 111/43 96 09/04/17 21:34 16 89 Intake and Output 09/05/17 09/05/17 09/06/17 08:59 16:59 00:59 Intake Total 240 / 240 480 / 480 Balance 240 / 240 480 / 480 Intake: Oral 240 / 240 480 / 480 Other: Meal Lunch Percent of Meal Consumed 100% # Voids 0 # Urine Diapers 1 1 Weight 65 kg Blood Glucose* 122 354 Patient Weight 09/06/17 00:59 Weight 65 kg Oncology: Obj Data - Labs CBC & Chem 7: 09/05/17 04:00 09/05/17 04:00 Labs: Laboratory Results - last 24 hr 09/04/17 09/04/17 09/04/17 07:16 11:56 15:48 WBC RBC Hgb Hct MCV MCH MCHC RDW Plt Count MPV Immature Gran % Seg Neutrophils % Lymphocytes % Monocytes % Eosinophils % Basophils % Neutrophils # Lymphocytes # Monocytes # Eosinophils # Basophils # Nucleated RBCs/100 WBC Platelet Estimate Anisocytosis Inocencio Cells ESR Sodium Potassium Chloride Carbon Dioxide BUN Creatinine Est GFR ( Amer) Est GFR (Non-Af Amer) BUN/Creatinine Ratio Glucose POC Glucose 177 H 317 H 245 H Calculated Osmolality Calcium Total Bilirubin AST ALT Alkaline Phosphatase Lactate Dehydrogenase Creatine Kinase C-Reactive Protein B-Natriuretic Peptide Serum Total Protein Albumin Globulin Albumin/Globulin Ratio Chlamy pneumoniae PCR Adenovirus (PCR) B. pertussis DNA (PCR) B.parapertussis DNA PCR Coronavirus OC43 (PCR) Coronavirus HKU1 (PCR) Coronavirus 229E (PCR) Coronavirus NL63 (PCR) Human Metapneumovir PCR Influenza A (H1) PCR Influ A (H1N1/09) PCR Influenza A (H3) PCR Influenza A Untype (PCR) Influenza Type B (PCR) M.pneumoniae DNA (PCR) Parainfluenza 1 (PCR) Parainfluenza 2 (PCR) Parainfluenza 3 (PCR) Parainfluenza 4 (PCR) RSV (PCR) Entero/Rhino (PCR) 09/04/17 09/04/17 09/05/17 18:06 20:13 04:00 WBC 1.9 L RBC 2.32 L Hgb 7.3 L Hct 20.8 L MCV 89.7 MCH 31.5 MCHC 35.1 RDW 19.0 H Plt Count 33 L MPV 9.9 Immature Gran % 1.5 Seg Neutrophils % 54.7 Lymphocytes % 39.7 Monocytes % 3.1 Eosinophils % 0.5 Basophils % 0.5 Neutrophils # 1.0 L Lymphocytes # 0.8 Monocytes # 0.1 Eosinophils # 0.0 Basophils # 0.0 Nucleated RBCs/100 WBC 1.0 H Platelet Estimate Decreased L Anisocytosis 1+ A [place] Cells 1+ A ESR Sodium Potassium Chloride Carbon Dioxide BUN Creatinine Est GFR ( Amer) Est GFR (Non-Af Amer) BUN/Creatinine Ratio Glucose POC Glucose 102 H Calculated Osmolality Calcium Total Bilirubin AST ALT Alkaline Phosphatase Lactate Dehydrogenase Creatine Kinase C-Reactive Protein B-Natriuretic Peptide Serum Total Protein Albumin Globulin Albumin/Globulin Ratio Chlamy pneumoniae PCR Not Detected Adenovirus (PCR) Not Detected B. pertussis DNA (PCR) Not Detected B.parapertussis DNA PCR Not Detected Coronavirus OC43 (PCR) Not Detected Coronavirus HKU1 (PCR) Not Detected Coronavirus 229E (PCR) Not Detected Coronavirus NL63 (PCR) Not Detected Human Metapneumovir PCR Not Detected Influenza A (H1) PCR Not Detected Influ A (H1N1/09) PCR Not Detected Influenza A (H3) PCR Not Detected Influenza A Untype (PCR) Not Detected Influenza Type B (PCR) Not Detected M.pneumoniae DNA (PCR) Not Detected Parainfluenza 1 (PCR) Not Detected Parainfluenza 2 (PCR) Not Detected Parainfluenza 3 (PCR) Not Detected Parainfluenza 4 (PCR) Not Detected RSV (PCR) Not Detected Entero/Rhino (PCR) Not Detected 09/05/17 09/05/17 09/05/17 04:00 06:44 11:38 WBC RBC Hgb Hct MCV MCH MCHC RDW Plt Count MPV Immature Gran % Seg Neutrophils % Lymphocytes % Monocytes % Eosinophils % Basophils % Neutrophils # Lymphocytes # Monocytes # Eosinophils # Basophils # Nucleated RBCs/100 WBC Platelet Estimate Anisocytosis [place] Cells ESR Sodium 129 L Potassium 3.6 Chloride 99 Carbon Dioxide 21 L BUN 34 H Creatinine 0.75 Est GFR ( Amer) > 60 Est GFR (Non-Af Amer) > 60 BUN/Creatinine Ratio 45 H Glucose 112 H POC Glucose 122 H 304 H Calculated Osmolality 276 L Calcium 7.3 L Total Bilirubin 1.0 AST 25 ALT 55 H Alkaline Phosphatase 58 Lactate Dehydrogenase Creatine Kinase C-Reactive Protein B-Natriuretic Peptide Serum Total Protein 4.6 L Albumin 2.1 L Globulin 2.5 Albumin/Globulin Ratio 0.8 L Chlamy pneumoniae PCR Adenovirus (PCR) B. pertussis DNA (PCR) B.parapertussis DNA PCR Coronavirus OC43 (PCR) Coronavirus HKU1 (PCR) Coronavirus 229E (PCR) Coronavirus NL63 (PCR) Human Metapneumovir PCR Influenza A (H1) PCR Influ A (H1N1/09) PCR Influenza A (H3) PCR Influenza A Untype (PCR) Influenza Type B (PCR) M.pneumoniae DNA (PCR) Parainfluenza 1 (PCR) Parainfluenza 2 (PCR) Parainfluenza 3 (PCR) Parainfluenza 4 (PCR) RSV (PCR) Entero/Rhino (PCR) 09/05/17 09/05/17 09/05/17 13:50 13:50 13:50 WBC RBC Hgb Hct MCV MCH MCHC RDW Plt Count MPV Immature Gran % Seg Neutrophils % Lymphocytes % Monocytes % Eosinophils % Basophils % Neutrophils # Lymphocytes # Monocytes # Eosinophils # Basophils # Nucleated RBCs/100 WBC Platelet Estimate Anisocytosis Inocencio Cells ESR 45 H Sodium Potassium Chloride Carbon Dioxide BUN Creatinine Est GFR ( Amer) Est GFR (Non-Af Amer) BUN/Creatinine Ratio Glucose POC Glucose Calculated Osmolality Calcium Total Bilirubin AST ALT Alkaline Phosphatase Lactate Dehydrogenase 247 Creatine Kinase 12 L C-Reactive Protein 95 H B-Natriuretic Peptide 2645 H Serum Total Protein Albumin Globulin Albumin/Globulin Ratio Chlamy pneumoniae PCR Adenovirus (PCR) B. pertussis DNA (PCR) B.parapertussis DNA PCR Coronavirus OC43 (PCR) Coronavirus HKU1 (PCR) Coronavirus 229E (PCR) Coronavirus NL63 (PCR) Human Metapneumovir PCR Influenza A (H1) PCR Influ A (H1N1/09) PCR Influenza A (H3) PCR Influenza A Untype (PCR) Influenza Type B (PCR) M.pneumoniae DNA (PCR) Parainfluenza 1 (PCR) Parainfluenza 2 (PCR) Parainfluenza 3 (PCR) Parainfluenza 4 (PCR) RSV (PCR) Entero/Rhino (PCR) - Impressions Impressions Hip X-Ray 08/31/17 17:55 IMPRESSION: No acute osseous abnormality. D/ /01/2017 06:57:32 Jon Lord MD / [email or web address] Interpreting Provider: Jon Lord MD - ABG Interpretation ABG results: PT/INR, D-dimer PT 12.9 Seconds (9.4-12.1) H 09/04/17 11:18
[2017-09-05] MEDS ORDERED: Furosemide 20 MG/2 ML VIAL IVP ONE ×2 (14:00→14:21)
[2017-09-05] MEDS ORDERED: *HR* Dextrose 50 % in Water (Syg) 50 ML SYRINGE IVP PRN (14:21)
[2017-09-05] MEDS ORDERED: D5% in Water 1,000 ML IVC PRN (14:21)
[2017-09-05] MEDS ORDERED: Naloxone 0.4 MG/ML INJ IVP PRN (14:21)
[2017-09-05] MEDS ORDERED: Dextrose Gel 15 GM/37.5 ML TUBE PO PRN ×2 (14:21)
[2017-09-05 15:19] LABS: C-Reactive Protein 95 mg/L (Less than 10); Creatine Kinase 12 Units/L (30-223); Lactate Dehydrogenase 247 Units/L (140-271)
[2017-09-05] MEDS: Doxycycline 100 MG CAPSULE PO SCH ×2 (16:22→23:03)
[2017-09-05] MEDS ORDERED: Insulin LISPRO 300 UNITS/3 ML VIAL SQ SCH (17:00)
--- NOTE | 2017-09-05 17:50 | Internal Med Progress Note ---
<Bogdan Monroe - Last Filed: 09/05/17 17:45> Date of Encounter: 09/05/17 Time of Encounter: 09:20 - Assessment and plan (1) Pancytopenia Current Visit: Yes Status: Acute Assessment and plan: Pancytopenia Hgb 7.3, WBC 1.9, Plt 33 s/p 2u PRBC and 4u FFP The patient has decreased iron stores per iron panel, and elevated LDH Concern for SIDDHARTH possibly due to Hemolysis We started repletion with Ferrous sulfate Consult Heme/Onc According to Heme/On -Concern for viral infection with myocarditis, consider tick-born illness -They started patient on Doxycycline (2) Type 2 diabetes mellitus Current Visit: Yes Status: Acute Assessment and plan: Sliding scale insulin, diabetic diet, Accu-Cheks before meals and at bedtime. A1c 9.4%. Qualifiers: Diabetes mellitus fdc insulin use: with fdc use Diabetes mellitus complication status: without complication Qualified Code(s): E11.9 - Type 2 diabetes mellitus without complications; Z79.4 - terminal operations manager (current) use of insulin (3) Falls frequently Current Visit: Yes Status: Acute Assessment and plan: Patient reports increased frequency of falling at home due to weakness and fatigue. Monitor for safety and falls Up with assistance only Fall precautions PT/OT consulted, evaluation will be delayed d/t pt condition. (4) Acute kidney injury Current Visit: Yes Status: Resolved Assessment and plan: Resolved. Sr Cr WNL 0.75, GFR improved at > 60. Continue to monitor labs, continue IVF, avoid nephrotoxins. Likely due to dehydration and poor oral intake (5) COPD (chronic obstructive pulmonary disease) Current Visit: Yes Status: Acute Assessment and plan: No acute exacerbation. Lungs are clear and diminished throughout. Pt on 3 liters 02 via n/c, titrate to goal SpO2 88-92% Continue albuterol, Symbicort. Continue older adult social work specialist vital signs including pulse ox. Qualifiers: COPD type: unspecified COPD Qualified Code(s): J44.9 - Chronic obstructive pulmonary disease, unspecified (6) Hyponatremia Current Visit: Yes Status: Acute Assessment and plan: 129 today, appears chronic Continue IVF hydration. Repeat BMP in the morning (7) GI bleed Current Visit: Yes Status: Suspected Assessment and plan: EGD completed 09/01. Patient has received 2 units of packed red blood cells as well as 2 units of platelets for suspected GI bleed. EGD showed no acute bleeding. Trending hemoglobins, will transfuse if less than 7.0. Patient denies melanic stools. Denies dark tarry stools. Bedside guaiac negative 09/03. Stool occult blood has been ordered, still pending. Continue to monitor for overt signs of bleeding. Trend labs and continue gentle IV fluid hydration as needed Qualifiers: GI bleed type/associated pathology: unspecified gastrointestinal hemorrhage type Qualified Code(s): K92.2 - Gastrointestinal hemorrhage, unspecified (8) DVT prophylaxis Current Visit: Yes Status: Acute Assessment and plan: SCDs. No pharmacologic intervention due to anemia and blood loss. (9) Cardiomyopathy Current Visit: Yes Status: Acute Assessment and plan: New cardiomyopathy with preserved ejection fraction Echo demonstrates moderate LV Diastolic dysfunction Possibly of viral or bacterial etiology Continue to monitor, diurese as needed Qualifiers: Cardiomyopathy type: unspecified Qualified Code(s): I42.9 - Cardiomyopathy , unspecified - Time Spent With Patient Total time spent is greater than 50% in coordination of care (as documented) at patient's floor/unit and/or counseling patient: - Subjective Interval history: The patient is seen and examined at bedside. Today she continues to be somnolent, however she says that she thinks she is feeling better than she was previously. The patient was seen by oncology yesterday and they recommended that possibly the patient could have a viral myocarditis. We will continue to monitor the patient in this regard. - Constitutional Vitals: Temp Pulse Resp BP Pulse Ox 97.4 F L 86 15 115/50 98 09/05/17 15:00 09/05/17 15:00 09/05/17 15:00 09/05/17 15:09/05/17 07:59 General appearance: Present: cooperative, A&O X 3, pleasant, no acute distress, answers questions appropriately Exam: Gen: Vitals noted. No acute distress. HEENT: oropharynx clear, Normocephalic, atraumatic Neck: Supple. No adenopathy. Cardiac: RRR, no murmur, +S1/S2 Pulmonary: Bibasilar early diminished with right basilar crackles Abdomen: soft, nontender, BS noted, no guarding MSK: ROM intact, no joint swelling noted Extremities: no BLE edema, nontender calf, no cyanosis or clubbing Neuro: A&Ox3, moves all extremities, Grain Packer strength poor in LUE which is chronic from Prior CVA, 3/5 in LUE otherwise. Psych: Appropriate mood and behavior Internal Medicine: Result - Labs CBC & Chem 7: 09/05/17 04:00 09/05/17 04:00 Labs: Short CBC 09/05/17 Range/Units 04:00 WBC 1.9 L (4.3-11.1) K/mcL Hgb 7.3 L (11.5-15.4) g/dL Hct 20.8 L (35.3-44.9) % Plt Count 33 L (140-400) K/mcL Neutrophils # 1.0 L (1.6-8.9) K/mcL BMP 09/05/17 04:00 Sodium 129 L Potassium 3.6 Chloride 99 Carbon Dioxide 21 L BUN 34 H Creatinine 0.75 Glucose 112 H Calcium 7.3 L Liver Function 09/05/17 Range/Units 04:00 Total Bilirubin 1.0 (0.3-1.0) mg/dL AST 25 (13-39) Units/L ALT 55 H (7-52) Units/L Alkaline Phosphatase 58 (34-104) Units/L Albumin 2.1 L (3.5-5.7) g/dL - ABG Interpretation ABG results: PT/INR, D-dimer PT 12.9 Seconds (9.4-12.1) H 09/04/17 11:18 - Impressions Impressions Hip X-Ray 08/31/17 17:55 IMPRESSION: No acute osseous abnormality. D/ / 09/01/2017 06:57:32 Jon Lord MD / [email or web address] Interpreting Provider: Jon Lord MD Consult Discharge Plan - Plan Referrals: Siomara Chavez, CD REACTOR OPERATOR HEAD [Primary Care Provider] - <Jimi Thomas - Last Filed: 09/05/17 18:54> Date of Encounter: 09/05/17 - Assessment and plan (1) Pancytopenia Current Visit: Yes Status: Acute (2) GI bleed Current Visit: Yes Status: Suspected Qualifiers: GI bleed type/associated pathology: unspecified gastrointestinal hemorrhage type Qualified Code(s): K92.2 - Gastrointestinal hemorrhage, unspecified (3) Type 2 diabetes mellitus Current Visit: Yes Status: Acute Qualifiers: Diabetes mellitus termite exterminator helper insulin use: with fdc use Diabetes mellitus complication status: without complication Qualified Code(s): E11.9 - Type 2 diabetes mellitus without complications; Z79.4 - terminal operations manager (current) use of insulin (4) Falls frequently Current Visit: Yes Status: Acute (5) Acute kidney injury Current Visit: Yes Status: Resolved (6) COPD (chronic obstructive pulmonary disease) Current Visit: Yes Status: Acute Qualifiers: COPD type: unspecified COPD Qualified Code(s): J44.9 - Chronic obstructive pulmonary disease, unspecified (7) Hyponatremia Current Visit: Yes Status: Acute (8) Cardiomyopathy Current Visit: Yes Status: Acute Qualifiers: Cardiomyopathy type: unspecified Qualified Code(s): I42.9 - Cardiomyopathy , unspecified (9) DVT prophylaxis Current Visit: Yes Status: Acute - Time Spent With Patient Total time spent is greater than 50% in coordination of care (as documented) at patient's floor/unit and/or counseling patient: - Constitutional Vitals: Temp Pulse Resp BP Pulse Ox 97.4 F L 86 15 115/50 98 09/05/17 15:00 09/05/17 15:00 09/05/17 15:00 09/05/17 15:00 09/05/17 07:59 Internal Medicine: Result - Labs CBC & Chem 7: 09/05/17 04:00 09/05/17 04:00 Labs: Short CBC 09/05/17 Range/Units 04:00 WBC 1.9 L (4.3-11.1) K/mcL Hgb 7.3 L (11.5-15.4) g/dL Hct 20.8 L (35.3-44.9) % Plt Count 33 L (140-400) K/mcL Neutrophils # 1.0 L (1.6-8.9) K/mcL BMP 09/05/17 04:00 Sodium 129 L Potassium 3.6 Chloride 99 Carbon Dioxide 21 L BUN 34 H Creatinine 0.75 Glucose 112 H Calcium 7.3 L Liver Function 09/05/17 Range/Units 04:00 Total Bilirubin 1.0 (0.3-1.0) mg/dL AST 25 (13-39) Units/L ALT 55 H (7-52) Units/L Alkaline Phosphatase 58 (34-104) Units/L Albumin 2.1 L (3.5-5.7) g/dL - ABG Interpretation ABG results: PT/INR, D-dimer PT 12.9 Seconds (9.4-12.1) H 09/04/17 11:18 - Impressions Impressions Hip X-Ray 08/31/17 17:55 IMPRESSION: No acute osseous abnormality. D/ /01/2017 06:57:32 Jon Lord MD / [email or web address] Interpreting Provider: Jon Lord MD - Attending Attestation I examined this patient and my medical decision-making was reviewed with the Resident Physician on 09/05/17. I agree with the documented findings, disposition and treatment plan as described except to the extent set forth below. Ms Mckeon is currently admitted for pancytopenia. She remains moderate to high risk due to potential for worsening clinical status. Ms Mckeon is very tired and weak. No CP or SOB at this time. No fever or chills. Appreciate heme onc input. Exam Alert Comfortable Mucus membranes dry Heart distant and regular Lungs clear Abd soft I/P 1. Pancytopenia. 2. COPD Further diagnoses and plan as above.
[2017-09-05] MEDS: Acetaminophen 325 MG TABLET PO PRN (23:03)
[2017-09-06] MEDS ORDERED: Levofloxacin 750 MG/150 ML 750 MG/150 ML BAG IVPB SCH (03:00)
[2017-09-06] MEDS: Insulin LISPRO 300 UNITS/3 ML VIAL SQ SCH ×4 (08:51→22:47)
--- NOTE | 2017-09-06 08:57 | Internal Med Progress Note ---
<Bogdan Monroe - Last Filed: 09/06/17 17:39> Date of Encounter: 09/06/17 Time of Encounter: 08:55 - Assessment and plan (1) Pancytopenia Current Visit: Yes Status: Acute Assessment and plan: Pancytopenia Hgb 7.3, WBC 1.9, Plt 33 s/p 2u PRBC and 4u FFP The patient has decreased iron stores per iron panel, and elevated LDH Concern for SIDDHARTH possibly due to Hemolysis We started repletion with Ferrous sulfate Consult Heme/Onc According to Heme/Onc -Plt dropped again today, and is having symptomatic anemia -Give 2U Plt and 1U PRBC -Patient will undergo bone marrow biopsy today -Test for EBV and Parvovirus in addition to Heme/Onc Tests -Recommend continued use of doxycylcine (2) COPD (chronic obstructive pulmonary disease) Current Visit: Yes Status: Acute Assessment and plan: No acute exacerbation. Lungs are clear and diminished throughout. Pt on 3 liters 02 via n/c, titrate to goal SpO2 88-92% Continue albuterol, Symbicort. Continue lion hunter vital signs including pulse ox. Qualifiers: COPD type: unspecified COPD Qualified Code(s): J44.9 - Chronic obstructive pulmonary disease, unspecified (3) GI bleed Current Visit: Yes Status: Ruled-out Assessment and plan: EGD completed 09/01. Patient has received 2 units of packed red blood cells as well as 2 units of platelets for suspected GI bleed. EGD showed no acute bleeding. Trending hemoglobins, will transfuse if less than 7.0. Patient denies melanic stools. Denies dark tarry stools. Bedside guaiac negative 09/03. Stool occult blood has been ordered, still pending. Continue to monitor for overt signs of bleeding. Trend labs and continue gentle IV fluid hydration as needed Qualifiers: GI bleed type/associated pathology: unspecified gastrointestinal hemorrhage type Qualified Code(s): K92.2 - Gastrointestinal hemorrhage, unspecified (4) Type 2 diabetes mellitus Current Visit: Yes Status: Acute Assessment and plan: Sliding scale insulin, diabetic diet, Accu-Cheks before meals and at bedtime. A1c 9.4%. Qualifiers: Diabetes mellitus retirement insulin use: with termite control service representative use Diabetes mellitus complication status: without complication Qualified Code(s): E11.9 - Type 2 diabetes mellitus without complications; Z79.4 - termite inspector (current) use of insulin (5) Falls frequently Current Visit: Yes Status: Acute Assessment and plan: Patient reports increased frequency of falling at home due to weakness and fatigue. Monitor for safety and falls Up with assistance only Fall precautions PT/OT consulted, evaluation will be delayed d/t pt condition. (6) Acute kidney injury Current Visit: Yes Status: Resolved Assessment and plan: Resolved. Sr Cr WNL 0.78, GFR improved at > 60. Continue to monitor labs, continue IVF, avoid nephrotoxins. Likely due to dehydration and poor oral intake (7) Hyponatremia Current Visit: Yes Status: Acute Assessment and plan: 129 today, appears chronic Continue IVF hydration. Repeat BMP in the morning (8) DVT prophylaxis Current Visit: Yes Status: Acute Assessment and plan: SCDs. No pharmacologic intervention due to anemia and blood loss. (9) Cardiomyopathy Current Visit: Yes Status: Acute Assessment and plan: New cardiomyopathy with preserved ejection fraction Echo demonstrates moderate LV Diastolic dysfunction Possibly of viral or bacterial etiology Continue to monitor, diurese as needed Qualifiers: Cardiomyopathy type: unspecified Qualified Code(s): I42.9 - Cardiomyopathy , unspecified - Time Spent With Patient Total time spent is greater than 50% in coordination of care (as documented) at patient's floor/unit and/or counseling patient: - Subjective Interval history: The patient is seen and examined at bedside. She is tired today, but she says she's feeling okay. She does feel that her shortness of breath has worsened. - Constitutional Vitals: Temp Pulse Resp BP Pulse Ox 97.9 F 80 18 111/72 93 09/06/17 07:00 09/06/17 07:00 09/06/17 07:00 09/06/17 07:00 09/06/17 07:00 General appearance: Present: cooperative, A&O X 3, pleasant, no acute distress, answers questions appropriately Exam: Gen: Vitals noted. No acute distress. HEENT: oropharynx clear, Normocephalic, atraumatic Neck: Supple. No adenopathy. Cardiac: RRR, no murmur, +S1/S2 Pulmonary: Bibasilar early diminished with right basilar crackles Abdomen: soft, nontender, BS noted, no guarding MSK: ROM intact, no joint swelling noted Extremities: no BLE edema, nontender calf, no cyanosis or clubbing Neuro: A&Ox3, moves all extremities, Vegetable Loader strength poor in LUE which is chronic from Prior CVA, 3/5 in LUE otherwise. Psych: Appropriate mood and behavior Internal Medicine: Result - Labs CBC & Chem 7: 09/06/17 09:51 09/06/17 09:51 - ABG Interpretation ABG results: PT/INR, D-dimer PT 12.9 Seconds (9.4-12.1) H 09/04/17 11:18 Consult Discharge Plan - Plan Referrals: Siomara Chavez, GENERATOR REBUILDER [Primary Care Provider] - <Jimi Thomas - Last Filed: 09/06/17 18:46> Date of Encounter: 09/06/17 - Assessment and plan (1) Pancytopenia Current Visit: Yes Status: Acute (2) Type 2 diabetes mellitus Current Visit: Yes Status: Acute Qualifiers: Diabetes mellitus retirement insulin use: with termite control service representative use Diabetes mellitus complication status: without complication Qualified Code(s): E11.9 - Type 2 diabetes mellitus without complications; Z79.4 - termite inspector (current) use of insulin (3) GI bleed Current Visit: Yes Status: Ruled-out Qualifiers: GI bleed type/associated pathology: unspecified gastrointestinal hemorrhage type Qualified Code(s): K92.2 - Gastrointestinal hemorrhage, unspecified (4) Falls frequently Current Visit: Yes Status: Acute (5) COPD (chronic obstructive pulmonary disease) Current Visit: Yes Status: Acute Qualifiers: COPD type: unspecified COPD Qualified Code(s): J44.9 - Chronic obstructive pulmonary disease, unspecified (6) Acute kidney injury Current Visit: Yes Status: Resolved (7) Hyponatremia Current Visit: Yes Status: Acute (8) Cardiomyopathy Current Visit: Yes Status: Acute Qualifiers: Cardiomyopathy type: unspecified Qualified Code(s): I42.9 - Cardiomyopathy , unspecified (9) DVT prophylaxis Current Visit: Yes Status: Acute - Time Spent With Patient Total time spent is greater than 50% in coordination of care (as documented) at patient's floor/unit and/or counseling patient: - Constitutional Vitals: Temp Pulse Resp BP Pulse Ox 97.6 F 88 18 118/58 94 09/06/17 15:26 09/06/17 15:26 09/06/17 15:26 09/06/17 15:26 09/06/17 15:05 Internal Medicine: Result - Labs CBC & Chem 7: 09/06/17 09:51 09/06/17 09:51 Labs: Short CBC 09/06/17 Range/Units 09:51 WBC 1.6 L (4.3-11.1) K/mcL Hgb 7.1 L (11.5-15.4) g/dL Hct 20.6 L (35.3-44.9) % Plt Count 20 L* (140-400) K/mcL Neutrophils # 0.9 L (1.6-8.9) K/mcL BMP 09/06/17 09:51 Sodium 132 L Potassium 3.9 Chloride 101 Carbon Dioxide 25 BUN 32 H Creatinine 0.78 Glucose 271 H Calcium 7.2 L Liver Function 09/06/17 Range/Units 09:51 Total Bilirubin 0.7 (0.3-1.0) mg/dL AST 12 L (13-39) Units/L ALT 36 (7-52) Units/L Alkaline Phosphatase 51 (34-104) Units/L Albumin 2.1 L (3.5-5.7) g/dL - ABG Interpretation ABG results: PT/INR, D-dimer PT 12.9 Seconds (9.4-12.1) H 09/04/17 11:18 - Attending Attestation I examined this patient and my medical decision-making was reviewed with the Resident Physician on 09/06/17. I agree with the documented findings, disposition and treatment plan as described except to the extent set forth below. Ms Mckeon is currently admitted for pancytopenia. She remains moderate to high risk due to potential for worsening clinical status. Ms Mckeon is having some pain from bone marrow bx. No fever or chills. No cough. Feels very tired. Exam alert Comfortable at rest Mucus membranes dry Heart not tachy No wheeze Abd soft I/P 1. Pancytopenia 2. fatigue Further diagnoses and plan as above.
[2017-09-06] MEDS: Doxycycline 100 MG CAPSULE PO SCH ×2 (09:57→20:50)
[2017-09-06] MEDS: Furosemide 20 MG/2 ML VIAL IVP SCH (09:57)
[2017-09-06 10:22] LABS: Basophils % 1.2 %; Eosinophils % 0.6 %; Hematocrit 20.6 % (35.3-44.9); Hemoglobin 7.1 g/dL (11.5-15.4); Immature Granulocytes % 1.8 % (0-4); Lymphocytes # 0.6 K/mcL (0.6-4.6); Lymphocytes % 36.2 %; Mean Corpuscular HGB Conc 34.5 g/dL (31.6-35.5); Mean Corpuscular Hemoglobin 30.9 pg (28.0-33.3); Mean Corpuscular Volume 89.6 fL (83.0-100.0); Mean Platelet Volume 10.9 fL (9.4-12.4); Monocytes % 2.5 %; Neutrophils # 0.9 K/mcL (1.6-8.9); Red Cell Distribution Width 19.2 % (11.5-14.5); Segmented Neutrophils % 57.7 %
[2017-09-06 10:24] LABS: Platelet Count 20 K/mcL (140-400)
[2017-09-06 10:43] LABS: Alanine Aminotransferase 36 Units/L (7-52); Albumin 2.1 g/dL (3.5-5.7); Albumin/Globulin Ratio 0.9 (1.1-2.2); Alkaline Phosphatase 51 Units/L (34-104); Aspartate Amino Transferase 12 Units/L (13-39); BUN/Creatinine Ratio 41 (6-26); Bilirubin,Total 0.7 mg/dL (0.3-1.0); Blood Urea Nitrogen 32 mg/dL (8-23); Calcium 7.2 mg/dL (8.6-10.3); Carbon Dioxide 25 mEq/L (23-29); Chloride 101 mEq/L (98-107); Globulin 2.4 g/dL (2.4-3.5); Glucose 271 mg/dL (70-105); Osmolality,Calculated 290 (280-300); Potassium 3.9 mEq/L (3.5-5.1); Sodium 132 mEq/L (136-145); Total Protein 4.5 g/dL (6.4-8.9); eGFR For African Americans > 60 (> 60); eGFR For Non-African Americans > 60 (> 60)
[2017-09-06] MEDS: Budesonide/Formoterol 80/4.5 MDI IH SCH ×2 (10:44→19:59)
[2017-09-06 11:00] LABS: Anisocytosis 1+ (Not Present); Platelet Estimate Marked Decrease (Normal)
[2017-09-06] MEDS ORDERED: 0.9 % Sodium Chloride 250 ML ONE ×2 (12:55→18:54)
--- NOTE | 2017-09-06 14:04 | Oncology Inp Progress Note ---
Date of Encounter: 09/06/17 Time of Encounter: 12:00 (1) Pancytopenia Current Visit: Yes Status: Acute Assessment and plan: Appears acute on current admission. Normocytic, normochromic anemia. S/P EGD without clear etiology for bleeding, polyp located in the prepyloric region-unable to remove secondary to thrombocytopenia and INR Bedside guaiac negative, occult stool-pending. B12 >1500. Folate normal TSH mildly elevated 6.2-defer to primary team Iron and ferritin, replete LDH has normalized, haptoglobin normal. Myke negative-does not fit hemolysis picture Ceruloplasmin and copper-pending Discussed recent CT abdomen/pelvis with radiologist-no evidence of splenomegaly/ hepatic cirrhosis. ESR/CRP mildly elevated, does not fit picture of vasculitis/autoimmune at this time TOMEKA-pending Coxsackie B virus serology-pending. Respiratory viral panel negative. BNP-remains elevated today 2645 Fibrinogen-high end normal 334 EBV serology and Borrelia burgdorferi IgG and IgM- pending Initial suspicion for viral illness or tickborne illness causing presenting symptoms. Cytopenias continue to decrease, indication for bone marrow biopsy at this time to assess bone marrow pathology. Discussed plan as above and plan for BMB today with patent at bedside. She is feling increasingly weak and fatigued today, she is planned to receive 1 unit PRBC. Continue doxycycline for tickborne illness prophylactic treatment at this time- plan to discontinue tomorrow unless cytopenias improved which may warrant further course of treatment. Bone marrow path results will take at least 3-5 days to result. If patient discharged during this time would recommend she have CBC lab checks until her follow up Oncology: Subj Interval history: Ms. Mckeon is resting in bed. She reports that she feels fatigued and weak today. She denies pain, headache, dizziness, nausea, vomiting or diarrhea. She continues to report SOB even at rest, which is stable since her admission. She is hungry and asking to eat. - Constitutional Vitals: Vital Signs Temp Pulse Resp BP Pulse Ox 09/06/17 13:37 97.7 F 83 18 111/58 09/06/17 13:22 97.9 F 82 18 122/63 09/06/17 11:00 83 19 118/93 09/06/17 10:44 18 97 09/06/17 07:00 97.9 F 80 18 111/72 93 09/06/17 05:42 88 17 120/63 95 09/05/17 21:07 16 91 09/05/17 21:00 97.6 F 81 15 114/44 96 09/05/17 15:00 97.4 F L 86 15 115/50 Intake and Output 09/05/17 09/06/17 09/06/17 23:59 07:59 15:59 Intake Total 45 / 45 Balance 45 / 45 Intake: Blood Product 45 / 45 Platelet Pheresis Lp Irr 2nd 45 / 45 Unit [id number] Other: Stool Size Large Stool Consistency soft formed Stool Color Brown # Urine Diapers 2 1 1 # Bowel Movements 1 Weight 62 kg Blood Glucose* 308 313 279 Patient Weight 09/06/17 23:59 Weight 62 kg General appearance: cooperative, no acute distress, no febrile Exam: chronically ill appearing - Head Head exam: Present: atraumatic - ENT ENT exam: Present: mucous membranes moist - Respiratory Respiratory exam: Present: decreased breath sounds, CTAB. Absent: respiratory distress - Cardiovascular Cardiovascular exam: Present: RRR, +S1, +S2 - GI/Abdominal GI/Abdominal exam: Present: normal bowel sounds, soft. Absent: tenderness - Extremities Exam Extremities exam: Present: normal inspection. Absent: calf tenderness - Neurological Exam Neurological exam: Present: alert, oriented X3, no focal deficits, strengths equal and symetr throughout - Psychiatric Psychiatric exam: Present: normal affect, normal mood - Skin Skin exam: Present: dry, intact, pallor, warm Oncology: Obj Data - Labs CBC & Chem 7: 09/06/17 09:51 09/06/17 09:51 - ABG Interpretation ABG results: PT/INR, D-dimer PT 12.9 Seconds (9.4-12.1) H 09/04/17 11:18 Consult Discharge Plan - Plan Referrals: Siomara Chavez, MUSICAL PERFORMER [Primary Care Provider] -
[2017-09-06] MEDS ORDERED: *HR* Midazolam HCl 2 MG/2 ML VIAL IVP ONE (14:45)
[2017-09-06] MEDS ORDERED: *HR* FentaNYL (PF) 100 MCG/2 ML VIAL IVP ONE (14:45)
--- NOTE | 2017-09-06 15:10 | IR Procedure Note ---
Date of procedure: 09/06/17 Consent Obtained: Verbal consent, Written consent Timeout: Correct patient and procedure verified, Correct site verified, Time out performed, Skin prep completed Local anesthetic: Lidocaine 1% Indications: Thrombocytopenia Procedure Performed: Bone Marrow Biopsy Was there an video library assistant present: No Site/Technique: Bone marrow biopsy and aspiration performed Results/Findings: 10 cc marrow aspirated Estimated blood loss (cc): 2 Complications: None; Tolerated procedure well Post Procedure Treatment Plan: Continue inpatient care Specimen: 10 cc marrow, single 11 gauge core needle biopsy
[2017-09-06] MEDS: Sennosides/Docusate Sodium TABLET PO SCH ×2 (17:48→20:52)
[2017-09-06] MEDS ORDERED: Furosemide 20 MG/2 ML VIAL IVP ONE (17:57)
[2017-09-06] MEDS: Acetaminophen 325 MG TABLET PO PRN (20:50)
[2017-09-07 04:48] LABS: Basophils % 1.1 %; Eosinophils % 2.2 %; Hematocrit 22.8 % (35.3-44.9); Immature Granulocytes % 0.6 % (0-4); Lymphocytes # 0.9 K/mcL (0.6-4.6); Lymphocytes % 47.8 %; Mean Corpuscular HGB Conc 35.1 g/dL (31.6-35.5); Mean Corpuscular Hemoglobin 31.1 pg (28.0-33.3); Mean Corpuscular Volume 88.7 fL (83.0-100.0); Mean Platelet Volume 10.9 fL (9.4-12.4); Monocytes # 0.1 K/mcL (0.0-1.3); Monocytes % 3.3 %; Neutrophils # 0.8 K/mcL (1.6-8.9); Nucleated Red Blood Cells 1.1 /100 WBC (0); Red Blood Count 2.57 M/mcL (3.82-4.97); Red Cell Distribution Width 18.5 % (11.5-14.5)
[2017-09-07 04:52] LABS: Platelet Count 34 K/mcL (140-400)
[2017-09-07 05:06] LABS: BUN/Creatinine Ratio 42 (6-26); Blood Urea Nitrogen 30 mg/dL (8-23); Calcium 7.4 mg/dL (8.6-10.3); Carbon Dioxide 28 mEq/L (23-29); Chloride 98 mEq/L (98-107); Glucose 146 mg/dL (70-105); Osmolality,Calculated 279 (280-300); Potassium 3.6 mEq/L (3.5-5.1); Sodium 130 mEq/L (136-145); eGFR For African Americans > 60 (> 60); eGFR For Non-African Americans > 60 (> 60)
[2017-09-07 05:23] LABS: Anisocytosis 1+ (Not Present); Platelet Estimate Marked Decrease (Normal)
[2017-09-07] MEDS: Budesonide/Formoterol 80/4.5 MDI IH SCH ×2 (08:06→20:30)
[2017-09-07] MEDS: Furosemide 20 MG/2 ML VIAL IVP SCH (08:39)
[2017-09-07] MEDS: Sennosides/Docusate Sodium TABLET PO SCH ×2 (08:39→20:13)
[2017-09-07] MEDS: Doxycycline 100 MG CAPSULE PO SCH (08:40)
[2017-09-07] MEDS: Insulin LISPRO 300 UNITS/3 ML VIAL SQ SCH ×4 (08:40→20:14)
[2017-09-07] MEDS: *HR* HYDROcodone/Acet 5/325 mg TABLET PO PRN ×2 (08:48→20:19)
--- NOTE | 2017-09-07 11:12 | Internal Med Progress Note ---
Addendum entered and electronically signed by Bogdan Monroe DO 09/07/17 16: 55: MRI read: Trace, subacute to chronic subdural hematoma over the right frontal convexity. At this time there is not an indication for transfer or acute intervention Unlikely responsible for symptoms today We will give 2U PLT due to bleed Original Note: <Bogdan Monroe - Last Filed: 09/07/17 16:15> Date of Encounter: 09/07/17 Time of Encounter: 09:30 - Assessment and plan (1) Pancytopenia Current Visit: Yes Status: Acute Assessment and plan: Pancytopenia Hgb 7.3, WBC 1.9, Plt 33 s/p 2u PRBC and 4u FFP The patient has decreased iron stores per iron panel, and elevated LDH Concern for SIDDHARTH possibly due to Hemolysis We started repletion with Ferrous sulfate Consult Heme/Onc According to Heme/Onc -Remain relatively stable today, some elevation after transfusions yesterday -Patient underwent bone marrow biopsy yesterday -Multiple viral serologies pending -Discontinued doxycylcine due to lack of response. -There is concern for Acute leukemia based on preliminary path reports, continue to follow. We will discuss with family at time of final path report (2) Cardiomyopathy Current Visit: Yes Status: Acute Assessment and plan: New cardiomyopathy with preserved ejection fraction Echo demonstrates moderate LV Diastolic dysfunction Possibly of viral or bacterial etiology Continue to monitor, diurese as needed Qualifiers: Cardiomyopathy type: unspecified Qualified Code(s): I42.9 - Cardiomyopathy , unspecified (3) Acute kidney injury Current Visit: Yes Status: Resolved Assessment and plan: Resolved. Sr Cr WNL 0.78, GFR improved at > 60. Continue to monitor labs, continue IVF, avoid nephrotoxins. Likely due to dehydration and poor oral intake (4) Type 2 diabetes mellitus Current Visit: Yes Status: Acute Assessment and plan: Sliding scale insulin, diabetic diet, Accu-Cheks before meals and at bedtime. A1c 9.4%. Qualifiers: Diabetes mellitus senior living insulin use: with long term care social worker use Diabetes mellitus complication status: without complication Qualified Code(s): E11.9 - Type 2 diabetes mellitus without complications; Z79.4 - manager long term care (current) use of insulin (5) Falls frequently Current Visit: Yes Status: Acute Assessment and plan: Patient reports increased frequency of falling at home due to weakness and fatigue. Monitor for safety and falls Up with assistance only Fall precautions PT/OT consulted, evaluation will be delayed d/t pt condition. (6) COPD (chronic obstructive pulmonary disease) Current Visit: Yes Status: Acute Assessment and plan: No acute exacerbation. Lungs are clear and diminished throughout. Pt on 3 liters 02 via n/c, titrate to goal SpO2 88-92% Continue albuterol, Symbicort. Continue manufacturing team leader vital signs including pulse ox. Qualifiers: COPD type: unspecified COPD Qualified Code(s): J44.9 - Chronic obstructive pulmonary disease, unspecified (7) Hyponatremia Current Visit: Yes Status: Acute Assessment and plan: 129 today, appears chronic Continue IVF hydration. Repeat BMP in the morning (8) DVT prophylaxis Current Visit: Yes Status: Acute Assessment and plan: SCDs. No pharmacologic intervention due to anemia and blood loss. (9) CVA (cerebral vascular accident) Current Visit: Yes Status: Suspected Assessment and plan: New left facial droop, suspect new CVA Last known well in evening last night Stroke alert was called, STAT CT was ordered given low plt and concern for hemorrhage Dr. Thomas from [facility] recommended MRI, however patient is out of time period for intervention MRI is pending Qualifiers: CVA mechanism: unspecified Qualified Code(s): I63.9 - Cerebral infarction, unspecified - Time Spent With Patient Total time spent is greater than 50% in coordination of care (as documented) at patient's floor/unit and/or counseling patient: - Subjective Interval history: The patient is seen and examined at bedside. She did wake up today feeling weaker in her left face and upper extremity than she had previously. She says that it started when she woke up, and that it has continued throughout the day. She has no other impairments. - Constitutional Vitals: Temp Pulse Resp BP Pulse Ox 99.3 F 91 16 102/82 99 09/07/17 07:09 09/07/17 07:09 09/07/17 08:06 09/07/17 07:09 09/07/17 08:06 General appearance: Present: cooperative, A&O X 3, pleasant, no acute distress, answers questions appropriately Exam: Gen: Vitals noted. No acute distress. HEENT: oropharynx clear, Normocephalic, atraumatic Neck: Supple. No adenopathy. Cardiac: RRR, no murmur, +S1/S2 Pulmonary: Diffuse crackles throughout, worse on left in lateral recumbant position Abdomen: soft, nontender, BS noted, no guarding MSK: ROM intact, no joint swelling noted Extremities: no BLE edema, nontender calf, no cyanosis or clubbing Neuro: A&Ox3, moves all extremities, Associate Director Financial Aid strength poor in LUE which is chronic from Prior CVA, 3/5 in LUE otherwise. There is new left facial droop with decreased light sensation on V3 branch of CN5. Cranial nerves are otherwise intact. Psych: Flat affect Internal Medicine: Result - Labs CBC & Chem 7: 09/07/17 04:26 09/07/17 04:26 Labs: Short CBC 09/07/17 Range/Units 04:26 WBC 1.8 L (4.3-11.1) K/mcL Hgb 8.0 L (11.5-15.4) g/dL Hct 22.8 L (35.3-44.9) % Plt Count 34 L D (140-400) K/mcL Neutrophils # 0.8 L (1.6-8.9) K/mcL BMP 09/07/17 04:26 Sodium 130 L Potassium 3.6 Chloride 98 Carbon Dioxide 28 BUN 30 H Creatinine 0.71 Glucose 146 H Calcium 7.4 L - ABG Interpretation ABG results: PT/INR, D-dimer PT 12.9 Seconds (9.4-12.1) H 09/04/17 11:18 Consult Discharge Plan - Plan Referrals: Siomara Chavez, BIOCHEMISTRY TECHNOLOGIST [Primary Care Provider] - <Jimi Thomas - Last Filed: 09/07/17 18:49> Date of Encounter: 09/07/17 - Assessment and plan (1) Pancytopenia Current Visit: Yes Status: Acute (2) CVA (cerebral vascular accident) Current Visit: Yes Status: Suspected Qualifiers: CVA mechanism: unspecified Qualified Code(s): I63.9 - Cerebral infarction, unspecified (3) Type 2 diabetes mellitus Current Visit: Yes Status: Acute Qualifiers: Diabetes mellitus senior living insulin use: with senior living use Diabetes mellitus complication status: without complication Qualified Code(s): E11.9 - Type 2 diabetes mellitus without complications; Z79.4 - manager long term care (current) use of insulin (4) Falls frequently Current Visit: Yes Status: Acute (5) Acute kidney injury Current Visit: Yes Status: Resolved (6) COPD (chronic obstructive pulmonary disease) Current Visit: Yes Status: Acute Qualifiers: COPD type: unspecified COPD Qualified Code(s): J44.9 - Chronic obstructive pulmonary disease, unspecified (7) Hyponatremia Current Visit: Yes Status: Acute (8) Cardiomyopathy Current Visit: Yes Status: Acute Qualifiers: Cardiomyopathy type: unspecified Qualified Code(s): I42.9 - Cardiomyopathy , unspecified (9) DVT prophylaxis Current Visit: Yes Status: Acute - Time Spent With Patient Total time spent is greater than 50% in coordination of care (as documented) at patient's floor/unit and/or counseling patient: - Constitutional Vitals: Temp Pulse Resp BP Pulse Ox 98.7 F 90 16 128/79 99 09/07/17 11:53 09/07/17 11:53 09/07/17 11:53 09/07/17 11:53 09/07/17 11:53 Internal Medicine: Result - Labs CBC & Chem 7: 09/07/17 04:26 09/07/17 04:26 Labs: Short CBC 09/07/17 Range/Units 04:26 WBC 1.8 L (4.3-11.1) K/mcL Hgb 8.0 L (11.5-15.4) g/dL Hct 22.8 L (35.3-44.9) % Plt Count 34 L D (140-400) K/mcL Neutrophils # 0.8 L (1.6-8.9) K/mcL BMP 09/07/17 04:26 Sodium 130 L Potassium 3.6 Chloride 98 Carbon Dioxide 28 BUN 30 H Creatinine 0.71 Glucose 146 H Calcium 7.4 L - ABG Interpretation ABG results: PT/INR, D-dimer PT 12.9 Seconds (9.4-12.1) H 09/04/17 11:18 - Impressions Impressions Head CT 09/07/17 13:10 IMPRESSION: 1. No acute intracranial abnormality. Critical results were called by Dr. William Basurto MD to Jimi Thomas on 09/07/2017 at 13:56. 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 D/ / Shan Casiano MD / Shan Casiano MD Interpreting Provider: Shan Casiano MD - Attending Attestation I examined this patient and my medical decision-making was reviewed with the Resident Physician on 09/07/17. I agree with the documented findings, disposition and treatment plan as described except to the extent set forth below. Ms Mckeon is currently admitted for acute pancytopenia. She remains moderate to high risk due to potential for worsening clinical status. Ms Mckeon had worsening of L facial droop today. No fever or chills. Feels very tired. No GI issues. No other weakness that is new. Exam alert. Comfortable L facial droop. Mucus membranes dry Heart reg No wheeze I/P 1. Possible new CVA 2. Pancytopenia Stroke alert called. Further diagnoses and plan as above.
[2017-09-07] MEDS ORDERED: Furosemide 20 MG/2 ML VIAL IVP ONE (15:00)
[2017-09-07] MEDS ORDERED: Furosemide 20 MG/2 ML VIAL IVP SCH (15:00)
[2017-09-07] MEDS ORDERED: Levofloxacin 750 MG/150 ML 750 MG/150 ML BAG IVPB SCH (18:00)
[2017-09-07] MEDS ORDERED: 0.9 % Sodium Chloride 250 ML ONE ×2 (18:46→23:28)
[2017-09-07] MEDS ORDERED: *HR* Promethazine 25 MG/ML VIAL IVP PRN (23:40)
[2017-09-07] MEDS ORDERED: Nitroglycerin 0.4 MG TAB.SUBL SL PRN (23:41)
[2017-09-07] MEDS ORDERED: Nitroglycerin 0.4 MG TAB.SUBL SL ONE (23:44)
[2017-09-07] MEDS ORDERED: *HR* Promethazine 25 MG/ML VIAL ONE (23:45)
[2017-09-08 04:32] LABS: Basophils % 1.1 %; Mean Platelet Volume 10.2 fL (9.4-12.4); Red Cell Distribution Width 18.2 % (11.5-14.5)
[2017-09-08 04:34] LABS: Eosinophils # 0.1 K/mcL (0.0-0.6); Eosinophils % 2.8 %; Hematocrit 21.3 % (35.3-44.9); Hemoglobin 7.6 g/dL (11.5-15.4); Immature Granulocytes % 1.1 % (0-4); Lymphocytes # 0.8 K/mcL (0.6-4.6); Lymphocytes % 45.6 %; Mean Corpuscular HGB Conc 35.7 g/dL (31.6-35.5); Mean Corpuscular Hemoglobin 31.4 pg (28.0-33.3); Monocytes # 0.1 K/mcL (0.0-1.3); Monocytes % 2.8 %; Neutrophils # 0.8 K/mcL (1.6-8.9); Nucleated Red Blood Cells 1.7 /100 WBC (0); Red Blood Count 2.42 M/mcL (3.82-4.97); Segmented Neutrophils % 46.6 %
[2017-09-08 04:57] LABS: Platelet Count 77 K/mcL (140-400)
[2017-09-08 05:48] LABS: Anisocytosis 1+ (Not Present); Macrocytosis Present (Not Present); Ovalocytes 1+ (Not Present); Platelet Estimate Decreased (Normal)
[2017-09-08 07:04] LABS: ANA Titer by IFA <1:80 (<1:80)
[2017-09-08] MEDS: Budesonide/Formoterol 80/4.5 MDI IH SCH ×2 (07:54→22:40)
[2017-09-08] MEDS: Sennosides/Docusate Sodium TABLET PO SCH ×2 (08:51→21:19)
[2017-09-08] MEDS ORDERED: Furosemide 40 MG/4 ML VIAL IVP SCH (08:52)
[2017-09-08] MEDS: Insulin LISPRO 300 UNITS/3 ML VIAL SQ SCH ×4 (08:52→21:20)
[2017-09-08] MEDS: Nitroglycerin 0.2 MG PATCH.TD24 TD SCH (08:56)
[2017-09-08] MEDS: *HR* HYDROcodone/Acet 5/325 mg TABLET PO PRN ×2 (09:07→16:59)
--- NOTE | 2017-09-08 09:13 | Internal Med Progress Note ---
<Bogdan Monroe - Last Filed: 09/08/17 09:12> Date of Encounter: 09/08/17 - Assessment and plan (1) DVT prophylaxis Current Visit: Yes Status: Acute (2) Type 2 diabetes mellitus Current Visit: Yes Status: Acute Qualifiers: Diabetes mellitus chcf insulin use: with chcf use Diabetes mellitus complication status: without complication Qualified Code(s): E11.9 - Type 2 diabetes mellitus without complications; Z79.4 - [facility] (current) use of insulin (3) Falls frequently Current Visit: Yes Status: Acute (4) Acute kidney injury Current Visit: Yes Status: Resolved (5) COPD (chronic obstructive pulmonary disease) Current Visit: Yes Status: Acute Qualifiers: COPD type: unspecified COPD Qualified Code(s): J44.9 - Chronic obstructive pulmonary disease, unspecified (6) Hyponatremia Current Visit: Yes Status: Acute (7) Pancytopenia Current Visit: Yes Status: Acute (8) Cardiomyopathy Current Visit: Yes Status: Acute Qualifiers: Cardiomyopathy type: unspecified Qualified Code(s): I42.9 - Cardiomyopathy , unspecified (9) CVA (cerebral vascular accident) Current Visit: Yes Status: Suspected Qualifiers: CVA mechanism: unspecified Qualified Code(s): I63.9 - Cerebral infarction, unspecified - Time Spent With Patient Total time spent is greater than 50% in coordination of care (as documented) at patient's floor/unit and/or counseling patient: - Subjective Interval history: The patient is seen and examined at bedside. She did wake up today feeling weaker in her left face and upper extremity than she had previously. She says that it started when she woke up, and that it has continued throughout the day. She has no other impairments. - Constitutional Vitals: Temp Pulse Resp BP Pulse Ox 97.5 F L 97 18 123/90 96 09/08/17 07:37 09/08/17 07:37 09/08/17 07:37 09/08/17 07:37 09/08/17 07:37 General appearance: Present: cooperative, A&O X 3, pleasant, no acute distress, answers questions appropriately Internal Medicine: Result - Labs CBC & Chem 7: 09/08/17 04:08 09/07/17 04:26 Labs: Short CBC 09/08/17 Range/Units 04:08 WBC 1.8 L (4.3-11.1) K/mcL Hgb 7.6 L (11.5-15.4) g/dL Hct 21.3 L (35.3-44.9) % Plt Count 77 L D (140-400) K/mcL Neutrophils # 0.8 L (1.6-8.9) K/mcL Cardiac Enzymes 09/07/17 09/08/17 Range/Units 23:41 04:08 Troponin I 0.04 H* 0.04 H* (< 0.04) ng/mL - ABG Interpretation ABG results: PT/INR, D-dimer PT 12.9 Seconds (9.4-12.1) H 09/04/17 11:18 - Impressions Impressions Head CT 09/07/17 13:10 IMPRESSION: 1. No acute intracranial abnormality. Critical results were called by Dr. William Basurto MD to Jimi Thomas on 09/07/2017 at 13:56. 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 Furthermore there are no treatments available for the patient. Therefore palliative care was consulted and had a extensive conversation with the patient. Patient has decided to enter hospice care. Plan will be to set up hospice and discharge patient tomorrow. Patient will not receive any further blood products. (2) DVT prophylaxis Current Visit: Yes Status: Acute Assessment and plan: d/c medical DVT prophylaxis. Patient is DNR CC. 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 (5) Acute kidney injury Current Visit: Yes Status: Resolved (6) COPD (chronic obstructive pulmonary disease) Current Visit: Yes Status: Acute Assessment and plan: Not an exacerbation. Continues albuterol and Symbicort. continue 3L O2 Qualifiers: COPD type: unspecified COPD Qualified Code(s): J44.9 - Chronic obstructive pulmonary disease, unspecified (7) Hyponatremia Current Visit: Yes Status: Acute Assessment and plan: stable. no further intervention necessary continue regular diet. (8) Cardiomyopathy Current Visit: Yes Status: Acute Assessment and plan: echo showed LV diastolic dysfucntion with preserved ejection fraction. Patient being diuresed with IV Lasix. Qualifiers: Cardiomyopathy type: unspecified Qualified Code(s): I42.9 - Cardiomyopathy , unspecified (9) CVA (cerebral vascular accident) Current Visit: Yes Status: Ruled-out Assessment and plan: MRI negative for stroke. Qualifiers: CVA mechanism: unspecified Qualified Code(s): I63.9 - Cerebral infarction, unspecified - Time Spent With Patient Total time spent is greater than 50% in coordination of care (as documented) at patient's floor/unit and/or counseling patient: - Subjective Interval history: Patient reports she continues to feel weak and fatigued. She denies shortness of breath. Overnight she had episode of chest pain which improved with nitroglycerin. She had a troponin of 0.04 and repeat troponin was the same. - Constitutional Vitals: Temp Pulse Resp BP Pulse Ox 98.2 F 107 18 117/55 99 09/08/17 16:20 09/08/17 16:20 09/08/17 16:20 09/08/17 16:20 09/08/17 16:20 - Other Additional findings: General: Fatigued, lethargic, weak Heart: Regular rate and rhythm with no murmur Lungs: Bibasilar crackles Abdomen: Soft nontender, nondistended positive bowel sounds Skin: warm and dry, absent rash Extremities: Absent pedal edema, Neuro: Alert oriented 3 Vascular: Pedal and radial pulses 2 out of 4 Internal Medicine: Result - Labs CBC & Chem 7: 09/08/17 04:08 09/07/17 04:26 Labs: Short CBC 09/08/17 Range/Units 04:08 WBC 1.8 L (4.3-11.1) K/mcL Hgb 7.6 L (11.5-15.4) g/dL Hct 21.3 L (35.3-44.9) % Plt Count 77 L D (140-400) K/mcL Neutrophils # 0.8 L (1.6-8.9) K/mcL Cardiac Enzymes 09/07/17 09/08/17 Range/Units 23:41 04:08 Troponin I 0.04 H* 0.04 H* (< 0.04) ng/mL - ABG Interpretation ABG results: PT/INR, D-dimer PT 12.9 Seconds (9.4-12.1) H 09/04/17 11:18 - Impressions Impressions Bone Marrow Biopsy w/ CT 09/06/17 00:00 IMPRESSION: Successful CT guided bone marrow aspiration and core biopsy of the iliac bone. D/ / Lavelle Wan MD / Lavelle Wan MD Interpreting Provider: Lavelle Wan MD Brain MRI 09/07/17 14:02 IMPRESSION: Trace, subacute to chronic subdural hematoma over the right frontal convexity. D/ / Shan Casiano MD / Shan Casiano MD Interpreting Provider: Shan Casiano MD <Jimi Thomas - Last Filed: 09/08/17 18:23> Date of Encounter: 09/08/17 - Assessment and plan (1) Leukemia Current Visit: Yes Status: Acute Qualifiers: Leukemia type: unspecified Leukemia Active/Remission status: without remission Qualified Code(s): C95.90 - Leukemia, unspecified not having achieved remission (2) Pancytopenia Current Visit: Yes Status: Acute (3) Type 2 diabetes mellitus Current Visit: Yes Status: Chronic Qualifiers: Diabetes mellitus vermin exterminator insulin use: with vermin exterminator use Diabetes mellitus complication status: without complication Qualified Code(s): E11.9 - Type 2 diabetes mellitus without complications; Z79.4 - [facility] (current) use of insulin (4) Falls frequently Current Visit: Yes Status: Acute (5) Acute kidney injury Current Visit: Yes Status: Resolved (6) COPD (chronic obstructive pulmonary disease) Current Visit: Yes Status: Chronic Qualifiers: COPD type: unspecified COPD Qualified Code(s): J44.9 - Chronic obstructive pulmonary disease, unspecified (7) Hyponatremia Current Visit: Yes Status: Resolved (8) Cardiomyopathy Current Visit: Yes Status: Ruled-out Qualifiers: Cardiomyopathy type: unspecified Qualified Code(s): I42.9 - Cardiomyopathy , unspecified (9) CVA (cerebral vascular accident) Current Visit: Yes Status: Ruled-out Qualifiers: CVA mechanism: unspecified Qualified Code(s): I63.9 - Cerebral infarction, unspecified (10) DVT prophylaxis Current Visit: Yes Status: Acute - Time Spent With Patient Total time spent is greater than 50% in coordination of care (as documented) at patient's floor/unit and/or counseling patient: - Constitutional Vitals: Temp Pulse Resp BP Pulse Ox 98.2 F 107 18 117/55 99 09/08/17 16:20 09/08/17 16:20 09/08/17 16:20 09/08/17 16:20 09/08/17 16:20 Internal Medicine: Result - Labs CBC & Chem 7: 09/08/17 04:08 09/07/17 04:26 Labs: Short CBC 09/08/17 Range/Units 04:08 WBC 1.8 L (4.3-11.1) K/mcL Hgb 7.6 L (11.5-15.4) g/dL Hct 21.3 L (35.3-44.9) % Plt Count 77 L D (140-400) K/mcL Neutrophils # 0.8 L (1.6-8.9) K/mcL Cardiac Enzymes 09/07/17 09/08/17 Range/Units 23:41 04:08 Troponin I 0.04 H* 0.04 H* (< 0.04) ng/mL - ABG Interpretation ABG results: PT/INR, D-dimer PT 12.9 Seconds (9.4-12.1) H 09/04/17 11:18 - Impressions Impressions Bone Marrow Biopsy w/ CT 09/06/17 00:00 IMPRESSION: Successful CT guided bone marrow aspiration and core biopsy of the iliac bone. D/ / Lavelle Wan MD / Lavelle Wan MD Interpreting Provider: Lavelle Wan MD - Attending Attestation I examined this patient and my medical decision-making was reviewed with the Resident Physician on 09/08/17. I agree with the documented findings, disposition and treatment plan as described except to the extent set forth below. Ms Mckeon is currently admitted for pancytopenia. 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 She remains moderate to high risk at this time. Ms Mckeon has had some chest discomfort. No fever or chills. No GI issues. Exam Alert Mild distress due to pain Mucus membranes dry Heart reg No wheeze I/P 1. Acute leukemia Pt has elected to be discharged with hospice and CC.
--- NOTE | 2017-09-08 13:39 | Oncology Inp Progress Note ---
<Sravanthi Wahl L - Last Filed: 09/12/17 09:03> Date of Encounter: 09/08/17 Time of Encounter: 12:30 (1) Pancytopenia Status: Acute Assessment and plan: Dr. Donahue met with patient and patients family to discuss bone marrow pathology results. Following further conversations between Dr. Donahue with Dr. 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 Discussed these results with patient/patients family along with treatment options available. Patient is a poor candidate for induction therapy given her multiple comorbidities, frailty and overall poor performance status. We discussed other treatment options with hypomethylating agents and/or transfusional support. Transfusional support along would include multiple lab draws multiple times per week, multiple trips for transfusions and likely a line placement given the multiple transfusion needs that patient will likely require. Hospice was also discussed as another potential option. Ultimately, patient declines treatment with hypomethylating agents and is considering options for transfusional support versus hospice. Patient wishes to call all of her children and meet with them around 3 pm today to discuss options. We discussed consult with palliative care who can assist with this process and may hopefully be able to meet with patient/patients family at 3 pm today. Verbal support was given, patient/patients family instructed to call with any further questions or concerns. Should patient decide to choose transfusional support or decide to pursue further treatment, arrangements for follow up with the cancer center will be made. Should patient decide on hospice, no follow up will need to be arranged with the cancer center and the palliative care/hospice team may continue to work iwht patient for discharge arrangements. Please refer to Dr. Donahue's attestation below for additional details. Oncology: Subj Interval history: Ms. Mckeon is resting in bed, states she is feeling weak and very fatigued today. Her , daughter and other family members are at her bedside. - Constitutional Vitals: Vital Signs Temp Pulse Resp BP Pulse Ox 09/08/17 11:00 98.0 F 106 18 109/85 96 09/08/17 07:54 18 96 09/08/17 07:37 97.5 F L 97 18 123/90 96 09/08/17 03:57 97.7 F 95 18 120/90 97 09/08/17 02:03 92 115/74 09/08/17 02:02 97.8 F 92 16 115/74 99 09/08/17 00:40 92 114/60 09/08/17 00:38 97.8 F 92 18 114/60 99 09/08/17 00:01 97.8 F 97 18 94/56 99 09/07/17 23:34 98.6 F 100 18 118/87 99 09/07/17 20:38 97.8 F 91 18 139/76 95 09/07/17 20:30 18 97 09/07/17 19:47 98.2 F 95 18 134/76 97 09/07/17 19:09 97.6 F 87 18 120/69 09/07/17 18:54 97.6 F 92 18 119/77 Intake and Output 09/07/17 09/08/17 09/08/17 23:59 07:59 15:59 Intake Total 295 / 295 297 / 297 240 / 240 Balance 295 / 295 297 / 297 240 / 240 Intake: Oral 0 / 0 0 / 0 240 / 240 Blood Product 295 / 295 297 / 297 Platelet Pheresis Lp Irr 1st 295 / 295 Unit [id number] Platelet Pheresis Lp Irr 1st 297 / 297 Unit [id number] Other: Meal Dinner Lunch Percent of Meal Consumed 0% 50% # Voids 0 # Urine Diapers 1 1 Weight 62.5 kg Blood Glucose* 245 158 257 General appearance: cooperative, no acute distress, no febrile Exam: chronically ill appearing - Head Head exam: Present: atraumatic - ENT ENT exam: Present: mucous membranes moist - Respiratory Respiratory exam: Present: decreased breath sounds. Absent: respiratory distress - Cardiovascular Cardiovascular exam: Present: RRR, +S1, +S2 - GI/Abdominal GI/Abdominal exam: Present: normal bowel sounds, soft. Absent: tenderness - Extremities Exam Extremities exam: Present: normal inspection. Absent: calf tenderness - Neurological Exam Neurological exam: Present: alert, oriented X3, no focal deficits, strengths equal and symetr throughout - Skin Skin exam: Present: dry, intact, pallor, warm Oncology: Obj Data - Labs CBC & Chem 7: 09/08/17 04:08 09/07/17 04:26 - Impressions Impressions Bone Marrow Biopsy w/ CT 09/06/17 00:00 IMPRESSION: Successful CT guided bone marrow aspiration and core biopsy of the iliac bone. D/ / Lavelle Wan MD / Lavelle Wan MD Interpreting Provider: Lavelle Wan MD Head CT 09/07/17 13:10 IMPRESSION: 1. No acute intracranial abnormality. Critical results were called by Dr. William Basurto MD to Jimi Thomas on 09/07/2017 at 13:56. 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 D/ / Shan Casiano MD / Shan Casiano MD Interpreting Provider: hSan Casiano MD - ABG Interpretation ABG results: PT/INR, D-dimer PT 12.9 Seconds (9.4-12.1) H 09/04/17 11:18 Consult Discharge Plan - Plan Instructions: Lorazepam (By mouth), Promethazine (By mouth), Laxative, Stimulant (By mouth), Morphine, Rapid Release (By mouth), Thrombocytopenia (GEN) Referrals: Siomara Chavez, [employer] [Primary Care Provider] - Prescriptions: Prochlorperazine Maleate [Compazine] 10 mg PO Q6HR PRN #30 tablet PRN Reason: Nausea LORazepam Oral Conc [Ativan Oral Conc] 1 mg PO Q4H PRN 7 Days #30 mls PRN Reason: Anxiety MORPHINE SUL Oral CONC [Roxanol Oral Conc] 5 - 10 mg SL Q1H PRN 7 Days #30 oral.syg PRN Reason: pain or shortness of breath Sennosides [Senokot] 8.6 mg PO DAILY #7 tablet <Kalyan Donahue - Last Filed: 09/19/17 08:54> Date of Encounter: 09/08/17 (1) Leukemia Status: Acute Assessment and plan: Seen and examined patient and agree with assessment and plan. Patient has AMl. Given her age and comorbidities and the significance of her pancytopenia, certainly induction chemotherapy would be out of the question and hypomethylating agent would be equally challenging. Therefore, we decided that supportive/palliative measures would be best. We discussed hospice but the patient is not amenable. We also took the time to discuss the case with the palliative care team who is also aware of the clinical situation. Of note, the was just extubated after an ICU stay. Qualifiers: Leukemia type: unspecified Leukemia Active/Remission status: without remission Qualified Code(s): C95.90 - Leukemia, unspecified not having achieved remission Oncology: Obj Data - Labs CBC & Chem 7: 09/08/17 04:08 09/07/17 04:26 - ABG Interpretation ABG results: PT/INR, D-dimer PT 12.9 Seconds (9.4-12.1) H 09/04/17 11:18
--- NOTE | 2017-09-08 15:02 | Palliative - Consult Note ---
Date of Encounter: 09/08/17 Time of Encounter: 14:00 - Assessment and Plan (1) COPD (chronic obstructive pulmonary disease) Current Visit: Yes Status: Acute Assessment and plan: Continue oxygen, symbicort, and albuterol as ordered. Oxygen saturation 93% on 3LNC. Qualifiers: COPD type: unspecified COPD Qualified Code(s): J44.9 - Chronic obstructive pulmonary disease, unspecified (2) Cardiomyopathy Current Visit: Yes Status: Acute Qualifiers: Cardiomyopathy type: unspecified Qualified Code(s): I42.9 - Cardiomyopathy , unspecified (3) Falls frequently Current Visit: Yes Status: Acute Assessment and plan: Patient had frequent falls prior to arrival. (4) Acute kidney injury Current Visit: Yes Status: Resolved (5) Leg pain, bilateral Current Visit: Yes Status: Acute Assessment and plan: BLE pain rated a 10/10; patient has received 2 doses of Bigelow in the last 24 hours. Patient reports unsure of anything to alter, either improve or worsen, the leg pain. (6) Leukemia Current Visit: Yes Status: Acute Assessment and plan: Oncology patient; follow their recommendations. Post family meeting, patient has decided to go home with [facility]. Sravanthi Wahl CNP notified of change in treatment plan. Qualifiers: Leukemia type: unspecified Leukemia Active/Remission status: without remission Qualified Code(s): C95.90 - Leukemia, unspecified not having achieved remission (7) Goals of care, counseling/discussion Current Visit: Yes Status: Acute Assessment and plan: Conducted bedside meeting with patient and patient's family with patient's spouse alongside Nikia Aguilar CNP and Cameron COHEN. Patient and family agree that given prognosis, patient wants to go home with hospice. Notified Rhina at [facility] pending discharge monday or monday with [facility]; informed Rhina of needed DME including: bed, bedside table, oxygen, wheelchair, and walker. Patient and family also agreed to change patient's CODE STATUS to DNR CC. Patient's daughter Sharda Mckeon [phone] is contact for [facility] to arrange for equipment delivery and is patient's contact. Patient will be going to live with daughter Sharda upon discharge. Family needs time to arrange room for both patient and her spouse to be discharged home. Palliative-CN HPI - Data of Consult Patient: new to practice Consult date: 09/08/17 Requesting Physician: Jimi Thomas DO Primary Care Provider: Siomara Chavez CNP - Consult Narrative Palliative Care/Comfort Measures: Palliative care Reason for consult: Goals of care, code status, and hospice discussion History of present illness: Ms. Mckeon is a 71 year old female arrived to [facility] on 08/31/17 for generalized weakness. Per chart review: patient had fallen at least 2 or 3 times over the course of the previous week or two, unclear if hit head. Had a history of a CVA weakening the left side; however, did regain some of her strength and was able to ambulate prior to admission. Granddaughter reported that she had fallen to the floor and required to call for assistance. Patient informed ER physician that she had been more short of breath and coughing up green phlegm for 4 days. Reports increased lightheadedness and weakness if she stands/tries to walk. PMH: asthma, COPD, CVA, DM, hyperlipidemia. Chest x-ray shows COPD and mild bilateral effusions and mild increased interstitial changes suggestion atypical pneumonia versus pulmonary edema. Head CT showing: no acute intracranial abnormality, chronic lacunar infarcts within the right internal capsule, left caudate nucleus, and deep white matter of the right frontal lobe, interval profession of diffuse age- appropriate atrophy, and chronic bilateral mastoid disease. EKG shows: SR with Ventricular premature complexes, intraventricular conduction delay, nonspecific ST and T wave abnormalities. Initial labs showed: WBC 3.3, Hgb 5.6, Hct 15.8, Na and BNP 2837. Patient found to be hyponatremic with chronic renal insufficiency, hyperglycemia, and low bicarbonate with some DKA. Patient transferred to [facility] in ICU. Patient admitted to ICU for: Pancytopenia, hyponatremia, GI bleed, hyperglycemia, T2DM, and frequent falls. 09/01/17: Abdominal CT showed bilateral pleural effusions, patchy opacity in the lung bases, nonobstructing renal calculi, and mild stool load in the colon. Gastroenterology consulted: ordered EGD and continue to monitor blood levels. EGD results normal duodenum, normal esophagus, gastritis, and single gastric polyp. 09/02/17: Patient transferred from ICU. Internal Medicine managed care from 09/02/17-to date. Internal medicine managing NADINE, Anemia, COPD, fall frequency, GI Bleed, hyponatremia, thrombocytopenia, elevated troponins, and DMT2. CT ordered showing: diffuse alveolar groundglass opacity with bilateral multifocal airspace disease. 09/03/17: Platelet level dropped from 41 to 19. 09/04: Oncology consulted: initially recommending viral syndrome and biopsy only if pancytopenia did not improve. 09/06/17: Biopsy performed as pancytopenia persisted. 09/07/17: New onset stroke type symptoms with stroke alert called. Head CT showed: No acute intracranial abnormality. MRI of brain showed: Trace, subacute to chronic subdural hematoma over the right frontal convexity. 09/08/17 : Oncology requested palliative consult for goals of care, code status, and hospice discussion. Patient newly diagnosed with acute leukemia and would require continuous transfusion therapy outpatient at discharge. Patient resting in room with eyes open upon arrival for assessment. Patient alert and oriented times 3. Reports leg pain a 10/10, constant throbbing pain; unable to say what alleviates or antagonizes pain. Patient ordered Bigelow; has received 2 doses in the last 24 hours. Patient denies nausea, vomiting, loss of appetite, or anxiety during assessment. No family present at bedside during initial assessment. Patient reports most of family will be present for 330 pm for family meeting. Patient reports that she believes her will be brought over from the unit he is admitted on for family meeting, although patient reports she is not sure he will really understand what is going on. Family meeting will include patient, patients , patients family members , and Cameron COHEN. CC: Jimi Thomas, DO Past Med Surg Social Fam HX - Past Medical History Medical history: asthma, COPD, CVA, diabetes, hyperlipidemia Psychiatric history: no psych history - Past Surgical History Surgical History: thyroidectomy - Social History Smoking Status: Current every day smoker Smokeless Tobacco Status: No Alcohol use: none Drug use: none Medications and Allergies Albuterol Sulfate [Ventolin Hfa] 18 gm IH Q4HR PRN 11/05/16 [History] Citalopram Hydrobromide [Citalopram HBr] 40 mg PO DAILY 11/05/16 [History] Clopidogrel [Plavix] 75 mg PO DAILY 11/05/16 [History] Fluticasone/Salmeterol [Advair 250-50 Diskus] 1 each IH BID 11/05/16 [History] Insulin Glargine,Hum.rec.anlog [Lantus Solostar] 10 unit SQ DAILY 11/05/16 [ History] Omeprazole 20 mg PO DAILY 11/05/16 [History] Oxybutynin Chloride [Ditropan Xl] 15 mg PO DAILY 11/05/16 [History] Atorvastatin [Lipitor] 20 mg PO HS 08/31/17 [History] Ketotifen Fumarate [Zaditor] 1 - 2 drop OP DAILY 08/31/17 [History] Montelukast Sodium [Singulair] 10 mg PO DAILY 08/31/17 [History] 3 Allergy/AdvReac Type Severity Reaction Status Date / Time Penicillins Allergy Anaphylaxis Verified 08/31/17 17:12 - Constitutional Constitutional ROS PAL: frequent falls, no decreased appetite - Cardiovascular Cardiovascular ROS: chest pain, no dyspnea on exertion, no radiating pain - Respiratory Respiratory: cough, change in phlegm color - Gastrointestinal Gastrointestinal: no abdominal pain, no change in bowel habits - Neurological Neurological ROS: dizziness, frequent falls, headache(s), lack of coordination, numbness, weakness - Psychiatric Psychiatric general PM: no anxiety, no confusion Palliative Care-Exam - Constitutional Vitals: Temp Pulse Resp BP Pulse Ox 98.0 F 106 18 109/85 96 09/08/17 11:00 09/08/17 11:00 09/08/17 11:00 09/08/17 11:00 09/08/17 11:00 General appearance: Present: cooperative, no acute distress. Absent: febrile - Head Head Exam: Present: atraumatic. Absent: normal inspection (facial droop) - Eye Eye exam: Present: normal appearance, conjuntiva pink. Absent: periorbital swelling, periorbital tenderness - ENT ENT exam: Present: mucous membranes moist, normal external ear exam - Expanded ENT Exam Mouth Exam: Absent: drooling - Neck Neck exam: Present: full ROM, normal inspection - Respiratory Respiratory exam: Present: CTAB. Absent: respiratory distress - Cardiovascular Cardiovascular exam: Present: RRR, +S1, +S2 - Expanded Cardiovascular Exam Peripheral pulses: 2+: Radial (L), Radial (R), Posterior Tibialis (L), Posterior Tibialis (R), Dorsalis Pedis (L) PM, Dorsalis Pedis (R) PM - GI/Abdominal Exam GI/Abdominal exam: Present: hyperactive bowel sounds, soft. Absent: tenderness - Expanded GI/Abdominal Exam GI/Abdominal exam: Absent: ascites - Rectal Rectal exam: Present: deferred - Catheter Type: Urethral (Stephens) - Extremities Exam Extremities exam: Present: calf tenderness, tenderness. Absent: pedal edema - Neurological Exam Neurological exam: Present: alert, oriented X3, facial droop - Expanded Neurological Exam Coma Scale Eye Opening: Spontaneous Coma Scale Motor Response: Obeys Commands Coma Scale Verbal Response: Oriented Coma Scale Total: 15 - Psychiatric Psychiatric exam: Present: normal affect, normal mood Internal Medicine - CN: Reslt - Labs CBC & Chem 7: 09/08/17 04:08 09/07/17 04:26 Labs: Short CBC 09/08/17 Range/Units 04:08 WBC 1.8 L (4.3-11.1) K/mcL Hgb 7.6 L (11.5-15.4) g/dL Hct 21.3 L (35.3-44.9) % Plt Count 77 L D (140-400) K/mcL Neutrophils # 0.8 L (1.6-8.9) K/mcL Cardiac Enzymes 09/07/17 09/08/17 Range/Units 23:41 04:08 Troponin I 0.04 H* 0.04 H* (< 0.04) ng/mL - ABG Interpretation ABG results: PT/INR, D-dimer PT 12.9 Seconds (9.4-12.1) H 09/04/17 11:18 - Impressions Impressions Bone Marrow Biopsy w/ CT 09/06/17 00:00 IMPRESSION: Successful CT guided bone marrow aspiration and core biopsy of the iliac bone. D/ / Lavelle Wan MD / Lavelle Wan MD Interpreting Provider: Lavelle Wan MD Brain MRI 09/07/17 14:02 IMPRESSION: Trace, subacute to chronic subdural hematoma over the right frontal convexity. D/ / Shan Casiano MD / Shan Casiano MD Interpreting Provider: Shan Casiano MD Consult Discharge Plan - Plan Referrals: Siomara Chavez CNP [Primary Care Provider] - Palliative Quality Palliative Quality: Screen for Code Status: Yes, Screen for Goals of Care: Yes, Screen for Pain: Yes, If Pain Regimen Started, Initiate Bowel Regimen: NA, Screen for Nausea/Vomitting: Yes Code Status: 08/31/17 16:10 Resuscitation Status: Active [RES] Routine Comment: Resuscitation Status: Full Code
[2017-09-08] MEDS ORDERED: MORPHINE SUL Oral CONC 10 MG/0.5 ML ORAL.SYG SL PRN (16:08)
[2017-09-08] MEDS ORDERED: *HR* Metoprolol 5 MG/5 ML VIAL IVP PRN (18:06)
--- NOTE | 2017-09-08 23:28 | Electrocardiograph Report ---
[address] [address] Test Date: 2017-09-08 Pat Name: Monica Mckeon Department: 111 Room: [facility] Gender: F Laminator Preforms: [id number] : 1945 Requested By: Amber Lemos Order Number: [id number] Reading MD: Romina Norris Measurements Intervals [place] Rate: 90 P: 53 MA: 149 QRS: 36 QRSD: 101 T: -7 QT: 381 QTc: 429 Interpretive Statements SINUS RHYTHM LOW QRS VOLTAGE IN EXTREMITY LEADS Electronically Signed On 09-08-2017 23:26:38 EDT by Romina Norris
--- NOTE | 2017-09-08 23:28 | Electrocardiograph Report ---
[address] [address] Test Date: 2017-09-08 Pat Name: Monica Mckeon Department: 111 Room: [facility] Gender: F Buggy Operator: [id number] : 1945 Requested By: Amber Lemos Order Number: [id number] Reading MD: Romina Norris Measurements Intervals [place] Rate: 102 P: 62 HI: 157 QRS: 32 QRSD: 97 T: -13 QT: 351 QTc: 410 Interpretive Statements SINUS TACHYCARDIA ABNORMAL RHYTHM ECG Electronically Signed On 09-08-2017 23:26:26 EDT by Romina Norris
[2017-09-09] MEDS: *HR* HYDROcodone/Acet 5/325 mg TABLET PO PRN (00:32)
--- NOTE | 2017-09-09 09:04 | Discharge Summary ---
- NOTES TO OUTPATIENT PROVIDER Notes to Outpatient Provider: Pt admitted with weakness and pancytopenia. Found to have acute leukemia. No treatment possible. Discharged home with hospice. Orders not resulted at time of discharge: Pending orders 08/31/17 16:46 PRBC [Red Blood Cells] [BBK] Stat Platelets [BBK] Stat Type and Screen [BBK] Stat 09/05/17 13:50 TOMEKA Titer by IFA Routine Coxsackie B Virus Antibodies Routine 09/06/17 11:17 Tissue Flow Cytometry Routine 09/06/17 12:32 Parvovirus B19, IgG, IgM Routine 09/06/17 12:37 EBV Ab(Viral Capsid Ag)VCA-IGG Routine 09/06/17 15:10 Bone Marrow, Flow & Cytogen Routine 09/08/17 11:41 Troponin I Q6H Date of Encounter: 09/09/17 Time of Encounter: 09:04 - Discharge Diagnosis (1) Leukemia Priority: Primary Status: Acute Assessment and Plan: Final pathology pending. Qualifiers: Leukemia type: unspecified Leukemia Active/Remission status: without remission Qualified Code(s): C95.90 - Leukemia, unspecified not having achieved remission (2) Pancytopenia Priority: Primary Status: Acute (3) Type 2 diabetes mellitus Priority: Secondary Status: Chronic Qualifiers: Diabetes mellitus buttermaker insulin use: with buttermaker use Diabetes mellitus complication status: without complication Qualified Code(s): E11.9 - Type 2 diabetes mellitus without complications; Z79.4 - ferry terminal agent (current) use of insulin (4) Falls frequently Priority: Secondary Status: Chronic (5) Acute kidney injury Priority: Secondary Status: Resolved (6) COPD (chronic obstructive pulmonary disease) Priority: Secondary Status: Chronic Qualifiers: COPD type: unspecified COPD Qualified Code(s): J44.9 - Chronic obstructive pulmonary disease, unspecified (7) Hyponatremia Priority: Secondary Status: Resolved (8) Tobacco abuse Priority: Secondary Status: Chronic Hospital course: Ms. Mckeon is a 71 year old female with hx of COPD presented to ED due to generalized weakness and frequent falls. Symptoms happening over prior 2-3 weeks. She was found to be pancytopenic and subsequently admitted. Ms Mckeon was initially admitted to ICU due to hemoglobin of 5.6 and concern for GI bleed. She was given blood and platelets. She was seen by GI and had endoscopy which revealed no active bleeding. She was transferred from ICU to med floor but continued to have weakness and pancytopenia. She was seen by tea cornejo and it was felt this was due to viral process. She was transfused platelets and PRBCs on more than one occasion. She continued to have no change in her condition and on 09/06 she underwent bone marrow biopsy. Iron was low on labs. Ultimately bone marrow biopsy revealed acute leukemia. This is not resulted yet on computer but tea cornejo has been told and has informed the patient and family. She was seen by palliative service and arrangements have been made for her to go home with Hospice. Discharge discussed with: patient, family, nurse - Time Spent with Patient Total time spent providing and/or coordinating discharge services: 42min - Discharge Medications Prescriptions: Prochlorperazine Maleate [Compazine] 10 mg PO Q6HR PRN #30 tablet PRN Reason: Nausea LORazepam Oral Conc [Ativan Oral Conc] 1 mg PO Q4H PRN 7 Days #30 mls PRN Reason: Anxiety MORPHINE SUL Oral CONC [Roxanol Oral Conc] 5 - 10 mg SL Q1H PRN 7 Days #30 oral.syg PRN Reason: pain or shortness of breath Sennosides [Senokot] 8.6 mg PO DAILY #7 tablet Home Medications: Albuterol Sulfate [Ventolin Hfa] 18 gm IH Q4HR PRN 11/05/16 [History] Citalopram Hydrobromide [Citalopram HBr] 40 mg PO DAILY 11/05/16 [History] Fluticasone/Salmeterol [Advair 250-50 Diskus] 1 each IH BID 11/05/16 [History] Insulin Glargine,Hum.rec.anlog [Lantus Solostar] 10 unit SQ DAILY 11/05/16 [ History] Ketotifen Fumarate [Zaditor] 1 - 2 drop OP DAILY 08/31/17 [History] Acetaminophen [Tylenol] 650 mg PO Q6HR PRN tablet 09/09/17 [Rx] Docusate [Colace] 100 mg PO BID capsule 09/09/17 [Rx] LORazepam Oral Conc [Ativan Oral Conc] 1 mg PO Q4H PRN 7 Days #30 mls 09/09/17 [ Rx] MORPHINE SUL Oral CONC [Roxanol Oral Conc] 5 - 10 mg SL Q1H PRN 7 Days #30 oral.syg 09/09/17 [Rx] Prochlorperazine Maleate [Compazine] 10 mg PO Q6HR PRN #30 tablet 09/09/17 [Rx] Sennosides [Senokot] 8.6 mg PO DAILY #7 tablet 09/09/17 [Rx] Sennosides/Docusate Sodium [Senna Plus] 1 each PO BID tablet 09/09/17 [Rx] Allergies/Adverse Reactions: 3 Allergy/AdvReac Type Severity Reaction Status Date / Time Penicillins Allergy Anaphylaxis Verified 08/31/17 17:12 Date of admission: 08/31/17 15:05 Primary care physician: Siomara Chavez CNP Consults: 08/31/17 18:38 Consult to Gastroenterology [CONS] Routine Consulting Provider: Gastroenterology Fatuma Reason for Consult: possible ugi bleed Time Notified: 18:39 Call Completed: Yes 09/02/17 15:36 Consult to Occupational Therapy [CONS] Routine Comment: Evaluate, develop and implement POC Reason for Consult: evaluation Does patient have active BEDREST order?: No Is patient medically & hemodynamically stable?: Yes Patient assessed for mobility or mobilized this visit?: Yes Consult to Physical Therapy [CONS] Routine Comment: Evaluate, develop and implement POC Reason for Consult: evaluation Does patient have active BEDREST order?: No Is patient medically & hemodynamically stable?: Yes Patient assessed for mobility or mobilized this visit?: Yes 09/03/17 15:18 Consult to Oncology Hematology [CONS] Routine Consulting Provider: Oncology [facility] Reason for Consult: Pancytopenia Time Notified: 15:20 Call Completed: Yes 09/04/17 09:49 Consult to Invasive Line Access Team [CONS] Routine Reason for Consult: limited access, infusions. Line Type: EPIV 09/04/17 11:42 Consult to Recreation Therapy Teacher [CONS] Routine Reason for SW Consult: therapy recommends SNF 09/05/17 14:21 Consult to Interventional Radiology [CONS] Routine Consulting Provider: Radiology Interventional Cols Reason for Consult: Thoracentesis (Diagnostic and therapeutic) Time Notified: 11:21 Call Completed: No 09/06/17 11:17 Consult to Interventional Radiology [CONS] Routine Consulting Provider: Radiology Interventional Cols Reason for Consult: bone marrow biopsy and aspiration Call Completed: Yes 09/08/17 13:38 Consult to Palliative Care [CONS] Routine Comment: Consulting Provider: Palliative Care Fatuma Reason for Consult: goals of care, code status, hospice discussion Call Completed: Yes Discharging clinician: Jimi Thomas Anticipated date of discharge: 09/09/17 - Constitutional Vitals: Temp Pulse Resp BP Pulse Ox 98.4 F 92 17 120/54 92 09/09/17 07:02 09/09/17 07:02 09/09/17 07:02 09/09/17 07:02 09/09/17 07:02 General appearance: Present: cooperative, A&O X 3, pleasant, no acute distress, answers questions appropriately - Patient Status Disposition: Hospice - Home Condition: Serious Functional capacity at discharge: bed bound Overall status at discharge: patient is not back to baseline - Discharge Instructions Instructions: Lorazepam (By mouth), Promethazine (By mouth), Laxative, Stimulant (By mouth), Morphine, Rapid Release (By mouth), Thrombocytopenia (GEN) Follow Up With: Siomara Chavez, CIGARETTE EXAMINER [Primary Care Provider] - - Diet and Activity Activity: increase activity as tolerated Diet: advance to your usual diet - VTE Documentation of Mechanical Device: Intermittent pneumatic compression device
[2017-09-09] MEDS ORDERED: Furosemide 40 MG/4 ML VIAL IVP ONE (09:05)
[2017-09-09] MEDS ORDERED: *HR* LORazepam 0.5 MG TABLET PO PRN (09:06)
[2017-09-09] MEDS: Sennosides/Docusate Sodium TABLET PO SCH (09:08)
[2017-09-09] MEDS: Nitroglycerin 0.2 MG PATCH.TD24 TD SCH (09:09)
[2017-09-09] MEDS ORDERED: MORPHINE SUL Oral CONC 10 MG/0.5 ML ORAL.SYG SL PRN (09:10)
[2017-09-09] MEDS: Insulin LISPRO 300 UNITS/3 ML VIAL SQ SCH ×3 (09:10→16:54)
[2017-09-09] MEDS: MORPHINE SUL Oral CONC 10 MG/0.5 ML ORAL.SYG SL PRN ×2 (09:26→13:52)
[2017-09-09] MEDS: Budesonide/Formoterol 80/4.5 MDI IH SCH ×2 (09:48→22:30)
--- NOTE | 2017-09-09 10:14 | Physician Discharge Referral ---
Home Health/Hosp Referral Info Transfer to: Hospice Provider in Charge Post Discharge: Bindery Supervisor - Diagnosis (1) Leukemia Priority: Primary Status: Acute (2) Pancytopenia Priority: Primary Status: Acute (3) Type 2 diabetes mellitus Priority: Secondary Status: Chronic (4) Falls frequently Priority: Secondary Status: Chronic (5) Acute kidney injury Priority: Secondary Status: Resolved (6) COPD (chronic obstructive pulmonary disease) Priority: Secondary Status: Chronic (7) Hyponatremia Priority: Secondary Status: Resolved - Respiratory Orders Oxygen / L per min (Maintain saturation greater than 88% or as comfortable.) Smoking Cessation: Smoking cessation has been advised. For more information, call the [place] Tobacco Quit Line at 3-464-YAZV-NOW. - Diet/Nutrition Diet/Nutrition Orders: Regular - Activity Activity Orders: Up ad caleb - Services Needed Following services are medically necessary services: Nursing, Home Health Aide - Transfer Medications Home Medications: Albuterol Sulfate [Ventolin Hfa] 18 gm IH Q4HR PRN 11/05/16 [History] Citalopram Hydrobromide [Citalopram HBr] 40 mg PO DAILY 11/05/16 [History] Fluticasone/Salmeterol [Advair 250-50 Diskus] 1 each IH BID 11/05/16 [History] Insulin Glargine,Hum.rec.anlog [Lantus Solostar] 10 unit SQ DAILY 11/05/16 [ History] Ketotifen Fumarate [Zaditor] 1 - 2 drop OP DAILY 08/31/17 [History] Acetaminophen [Tylenol] 650 mg PO Q6HR PRN tablet 09/09/17 [Rx] Docusate [Colace] 100 mg PO BID capsule 09/09/17 [Rx] Sennosides/Docusate Sodium [Senna Plus] 1 each PO BID tablet 09/09/17 [Rx] Allergies/Adverse Reactions: 3 Allergy/AdvReac Type Severity Reaction Status Date / Time Penicillins Allergy Anaphylaxis Verified 08/31/17 17:12 Certification: Further, I certify that my clinical findings support that this patient is homebound (i.e. absences from home require considerable and taxing effort and are for medical reasons or [facility] or infrequently or short duration when for other reasons) because: Homebound Reason: Leaving home requires considerable and taxing effort due to condition Attestation: My signature below is to certify that this patient is under my care and that I, or nurse practitioner, or a physician's clinical services assistant working with me, has a face-to -face encounter with this patient.
--- NOTE | 2017-09-09 10:38 | Palliative Progress Note ---
Date of Encounter: 09/09/17 Time of Encounter: 10:40 - Assessment and plan (1) Dyspnea Current Visit: Yes Status: Acute Assessment and plan: Has been started on Roxanol - this required increasing this am. Will increase interval she can receive this. Prescription completed. (2) Goals of care, counseling/discussion Current Visit: Yes Status: Acute Assessment and plan: Spoke with pt, as well as pt daughter Sharda. Plan remains to go home with hospice today once DME set up. Spoke with [facility] nurse Navya Brown, who will meet pt and family here at hospital around 12-13. Prescriptions completed for Roxanol, Ativan, Compazine and Senna - family instructed to fill at [facility] on [address] here in [place]. Patient signed [place] state form and copies made for record as well as hospice. She can be discharged via ambulance after [facility] nurse here to enroll. D/W Hospitalist and pt nurse Ankita. (3) Pancytopenia Current Visit: Yes Status: Acute (4) Weakness Current Visit: Yes Status: Acute (5) Leukemia Current Visit: Yes Status: Acute Qualifiers: Leukemia type: unspecified Leukemia Active/Remission status: without remission Qualified Code(s): C95.90 - Leukemia, unspecified not having achieved remission - Time Spent With Patient Total time spent is greater than 50% in coordination of care (as documented) at patient's floor/unit and/or counseling patient: - Subjective Interval history: Patient with increasing shortness of breath and c/o pain rt hip and coccyx area. Niece at bedside. Plan to go home with hospice today. - Constitutional Vitals: Abnormal lab results WBC 1.8 K/mcL (4.3-11.1) L 09/08/17 04:08 RBC 2.42 M/mcL (3.82-4.97) L 09/08/17 04:08 Hgb 7.6 g/dL (11.5-15.4) L 09/08/17 04:08 Hct 21.3 % (35.3-44.9) L 09/08/17 04:08 MCHC 35.7 g/dL (31.6-35.5) H 09/08/17 04:08 RDW 18.2 % (11.5-14.5) H 09/08/17 04:08 Plt Count 77 K/mcL (140-400) L D 09/08/17 04:08 Neutrophils # 0.8 K/mcL (1.6-8.9) L 09/08/17 04:08 Nucleated RBCs/100 WBC 1.7 /100 WBC (0) H 09/08/17 04:08 Platelet Estimate Decreased (Normal) L 09/08/17 04:08 Poikilocytosis 2+ (Not Present) A 09/03/17 06:00 Anisocytosis 1+ (Not Present) A 09/08/17 04:08 Macrocytosis Present (Not Present) A 09/08/17 04:08 Spherocytes 1+ (Not Present) A 09/03/17 06:00 Ovalocytes 1+ (Not Present) A 09/08/17 04:08 Helmet Cells Present (Not Present) A 09/03/17 06:00 [place] Cells 1+ (Not Present) A 09/05/17 04:00 ESR 45 mm/hr (0-15) H 09/05/17 13:50 Retic Hgb Equivalent 38.1 pg (28.61-36.33) H 09/03/17 11:06 PT 12.9 Seconds (9.4-12.1) H 09/04/17 11:18 APTT 25.0 Seconds (26.0-36.0) L 08/31/17 16:46 Sodium 130 mEq/L (136-145) L 09/07/17 04:26 BUN 30 mg/dL (8-23) H 09/07/17 04:26 BUN/Creatinine Ratio 42 (6-26) H 09/07/17 04:26 Glucose 146 mg/dL (70-105) H 09/07/17 04:26 POC Glucose 257 mg/dL (70-99) H 09/08/17 11:21 Hemoglobin A1c 9.4 % (-5.6) H 09/03/17 06:00 Calculated Osmolality 279 (280-300) L 09/07/17 04:26 Calcium 7.4 mg/dL (8.6-10.3) L 09/07/17 04:26 Venous Ioniz Calcium 1.03 mmol/L (1.15-1.35) L 09/01/17 06:13 Phosphorus 4.9 mg/dL (2.7-4.5) H 09/01/17 06:00 % Saturation 53 % (15-50) H 09/02/17 09:18 Transferrin 164 mg/dL (203-362) L 09/02/17 09:18 Ferritin 391 ng/ml (10-120) H 09/02/17 09:18 Direct Bilirubin 0.4 mg/dL (0.0-0.2) H 09/03/17 06:00 AST 12 Units/L (13-39) L 09/06/17 09:51 Creatine Kinase 12 Units/L (30-223) L 09/05/17 13:50 Troponin I 0.04 ng/mL (< 0.04) H* 09/08/17 04:08 C-Reactive Protein 95 mg/L (Less than 10) H 09/05/17 13:50 B-Natriuretic Peptide 2645 pg/mL (Less than 100) H 09/05/17 13:50 Serum Total Protein 4.5 g/dL (6.4-8.9) L 09/06/17 09:51 Albumin 2.1 g/dL (3.5-5.7) L 09/06/17 09:51 Albumin/Globulin Ratio 0.9 (1.1-2.2) L 09/06/17 09:51 Vitamin B12 > 1500 pg/mL (250-1100) H 09/02/17 09:18 General appearance: Present: mild distress - Respiratory Respiratory exam: Present: decreased breath sounds - Cardiovascular Cardiovascular exam: Present: +S1, +S2, tachycardia - GI/Abdominal GI/Abdominal exam: Present: normal bowel sounds, soft - Additional comments: [place] with clear yellow urine - Extremities Exam Extremities exam: Present: normal capillary refill, normal inspection - Neurological Exam Neurological exam: Present: alert, oriented X3, strengths equal and symetr throughout - Skin Skin exam: Present: dry, pallor, warm Palliative Quality Palliative Quality: Screen for Code Status: Yes, Screen for Goals of Care: Yes, Screen for Pain: Yes, If Pain Regimen Started, Initiate Bowel Regimen: NA, Screen for Nausea/Vomitting: Yes Code Status: 08/31/17 16:10 Resuscitation Status: Active [RES] Routine Comment: Resuscitation Status: Full Code 09/08/17 15:58 DNR [Resuscitation Status: Active] [RES] Routine Comment: Resuscitation Status: DNR-Comfort Care - Labs CBC & Chem 7: 09/08/17 04:08 09/07/17 04:26 Labs: Laboratory Results - last 24 hr 09/06/17 09/07/17 09/07/17 12:37 11:48 17:05 POC Glucose 278 H 246 H EBV Capsid Ag IgM Ab Negative 09/07/17 09/08/17 09/08/17 19:57 07:40 11:21 POC Glucose 245 H 158 H 257 H EBV Capsid Ag IgM Ab - Impressions Impressions Bone Marrow Biopsy w/ CT 09/06/17 00:00 IMPRESSION: Successful CT guided bone marrow aspiration and core biopsy of the iliac bone. D/ / Lavelle Wan MD / Lavelle Wan MD Interpreting Provider: Lavelle Wan MD - ABG Interpretation ABG results: PT/INR, D-dimer PT 12.9 Seconds (9.4-12.1) H 09/04/17 11:18 Consult Discharge Plan - Plan Referrals: Siomara Chavez, [facility] [Primary Care Provider] - Prescriptions: Prochlorperazine Maleate [Compazine] 10 mg PO Q6HR PRN #30 tablet PRN Reason: Nausea LORazepam Oral Conc [Ativan Oral Conc] 1 mg PO Q4H PRN 7 Days #30 mls PRN Reason: Anxiety MORPHINE SUL Oral CONC [Roxanol Oral Conc] 5 - 10 mg SL Q1H PRN 7 Days #30 oral.syg PRN Reason: pain or shortness of breath Sennosides [Senokot] 8.6 mg PO DAILY #7 tablet
[2017-09-09 17:56] LABS: Parvovirus B19, IgG 1.86 IV (<=0.89); Parvovirus B19, IgM 0.15 IV (<=0.89)
[2017-09-09 18:46] VITALS: BP 108/60
[2017-09-13 16:11] LABS: Coxsackie B Type 2 Antibody 1:20 (<1:10); Coxsackie B Type 3 Antibody 1:20 (<1:10); Coxsackie B Type 4 Antibody >= 1:640 (<1:10); Coxsackie B Type 5 Antibody 1:20 (<1:10)
[2017-09-14 07:24] LABS: Coxsackie B Type 6 Antibody 1:20 (<1:10)
== END 2017-09-09 20:00 | disposition hospice, home (50) | DRG 378 ==
LOC: SUATTDRO 15:05 → ICNU 15:05 → 3BNU 09-01 09:55 → 2NENU 09-04 14:48
PROVIDERS: ADMIT Internal Medicine Pulmonary Disease; ATTEND Internal Medicine